=== PATIENT | male | born 1935 | race Hispanic/Latino ===

== ENCOUNTER 2017-08-15 14:38 | Inpatient (IN) | payer MEDICARE, BC, MEDICAID ==
[2017-08-15] MEDS ORDERED: ISOVUE-370 76%-LOCM 1 ML ONE (15:00)
[2017-08-15] MEDS ORDERED: Lorazepam 2 MG/ML VIAL ONE ×2 (15:21→16:15)
[2017-08-15] MEDS ORDERED: Succinylcholine Chloride 20 MG/ML 10 ml SYRINGE FS ONE (15:39)
[2017-08-15] MEDS ORDERED: levETIRAcetam In NaCl (Iso-Os) 1,000 MG in Premix Bag 1 BAG IVPB SCH ×2 (15:45)
[2017-08-15] MEDS ORDERED: Propofol 1,000 MG/100 ML VIAL IV ONE ×2 (15:52→17:14)
[2017-08-15] MEDS ORDERED: Propofol 1,000 MG/100 ML VIAL IV PRN ×2 (15:53→18:02)
[2017-08-15 16:06] LABS: #Eosinphils 0.4 thou/uL (0.0-0.7); #Lymphocytes 1.5 thou/uL (1.20-3.40); #Monocytes 0.7 thou/uL (0.11-0.59); #Neutrophils 9.1 thou/uL (1.40-6.50); %Basophils 0.2 % (0.0-1.0); %Eosinophils 3.6 % (0.0-10.0); %Lymphocytes 12.6 % (21.0-51.0); %Monocytes 6.3 % (0.0-10.0); %Neutrophils 77.3 % (42.0-75.0); Hemoglobin 14.6 g/dL (14.0-18.0); Mean Corpuscular HGB CONC 34.4 g/dL (32.0-36.0); Mean Corpuscular Hemoglobin 31.7 pg (27.0-31.0); Mean Corpuscular Volume 92.2 fl (80.0-94.0); Mean Platelet Volume 6.9 fL (7.4-10.4); Platelet Count 247 thou/uL (130-400); RBC Distribution Width 12.1 % (11.5-14.5); White Blood Cell (WBC) Count 11.7 thou/uL (4.8-10.8)
[2017-08-15 16:29] LABS: ALT (SGPT) 20 U/L (8-55); AST (SGOT) 21 U/L (5-34); Albumin 3.9 g/dL (3.4-4.8); Alkaline Phosphatase 164 U/L (40-150); Anion Gap 16 mmol/L (10-20); BUN (Urea Nitrogen) 19 mg/dL (8.4-25.7); Bilirubin, Total 0.6 mg/dL (0.2-1.2); Calc. Creatinine Clearance 0 mL/min (70-130); Calcium 8.9 mg/dL (7.8-10.44); Carbon Dioxide 21 mmol/L (23-31); Chloride 108 mmol/L (98-107); Estimated GFR-MDRD 58; Globulin 3.1 g/dL (2.4-3.5); Glucose 107 mg/dL (83-110); Potassium 4.5 mmol/L (3.5-5.1); Sodium 140 mmol/L (136-145)
[2017-08-15 16:33] LABS: CKMB 0.9 ng/mL (0-6.6); Troponin I 0.017 ng/mL (< 0.028)
[2017-08-15 16:40] LABS: Bilirubin Negative (Negative); Blood, Urine Negative (Negative); Clarity CLEAR (Clear); Glucose, Urine (Dipstick) Negative (Negative); Leukocyte Trace (Negative); Nitrite Negative (Negative); Protein, Urine (Dipstick) Trace mg/dL (Neg-Trace); Specific Gravity, Urine 1.026 (1.002-1.036); Urobilinogen 0.2 mg/dL (0.2-1.0)
[2017-08-15 16:42] LABS: Bacteria/HPF None Seen HPF (None Seen); Squamous Epithelial 0-3 HPF (0-3); WBC/HPF 0-3 HPF (0-3)
[2017-08-15 16:45] LABS: Pathc Cast-AUWi Flag 5.37 (0-2.49)
[2017-08-15 16:50] LABS: Amphetamine Not Detected (NotDetected); Barbiturates Screen Not Detected (NotDetected); Benzodiazepine Screen Detected (NotDetected); Cocaine Metabolite Screen Not Detected (NotDetected); Medtox Control Line Valid? VALID (VALID); Medtox Reader # READER 4; Methadone Not Detected (NotDetected); Methamphetamine Not Detected (NotDetected); Opiate Screen Not Detected (NotDetected); Oxycodone Screen Not Detected (NotDetected); Phencyclidine (PCP) Not Detected (NotDetected); THC/Cannabinoid Screen Not Detected (NotDetected); Tricyclic Screen Not Detected (NotDetected)
[2017-08-15 16:50] LABS: Actual Bicarbonate (HCO3a) 22.4 mEq/L (22-26); Base Excess (BEa) -2.5 mEq/L (0 (+/-) 2.5); CO2 Tension 39.2 mmHg (35.0-45.0); O2 Tension (PaO2) 125.3 mmHg (80.0-100.0); pH, Arterial 7.37 (7.35-7.45)
[2017-08-15 16:51] LABS: Hematocrit-ABG 39.5 % (42.0-52.0); Hemoglobin (Hb) 13.6 g/dL (14.0-18.0)
[2017-08-15 16:52] LABS: Analyzer IN Cardio ER; Calcium, Ionized 1.2 mmol/L (1.12-1.30); Puncture Site RBRACH
[2017-08-15 16:56] LABS: Hyaline Casts/LPF 7-10 HYALINE CAST LPF (0-3 Hyaline); Other Casts/LPF 0-3 COARSE GRAN LPF (0-3 Hyaline); Renal Epithelial 0-3 HPF (0-3); Transitional Epithelial 0-3 HPF (0-3)
--- NOTE | 2017-08-15 17:02 | RAD ---
PORTABLE AP CHEST RADIOGRAPH: Date: 08-15-17 History: Altered mental status. [facility] to reported seizure. History of two seizures today. Comparison: 11-21-16 FINDINGS: The patient is rotated. Endotracheal tube is noted in place with the tip overlying the T4-5 level and above the level of the bryce. A nasogastric tube is noted in place which overlies the epigastric re gion. Tip overlies the medial aspect of the right upper quadrant although the exact location is diffi cult to definitely determine based on this exam, some of which could be related to patient positionin g. Post-surgical changes related to CABG are noted. The cardiac silhouette is magnified by projection . Thoracic aorta is ectatic. Lungs are clear. No other interval change. IMPRESSION: 1. Endotracheal tube noted in place which is above the level of the bryce. 2. Nasogastric tube noted in place with tip overlying the medial right upper quadrant. The exact loca tion is difficult to determine but this is likely related to positioning. 3. No acute cardiopulmonary process. POS: [facility]
--- NOTE | 2017-08-15 17:28 | CT ---
BRAIN CT WITHOUT IV CONTRAST: History: 81-year-old male with history of seizure. Comparison: 11-21-16 FINDINGS: Stable old encephalomalacia involving the left middle cerebral artery distribution, particularly the left temporal and parietal lobes and posterior frontal lobe, stable from prior study. There is associ ated left sided brain volume loss. No focal mass or midline shift. Ethmoid and maxillary sinus mucosa l disease. The mastoids are clear. IMPRESSION: Stable marked left sided encephalomalacic changes with some associated left sided brain volume loss. No mass, bleed, or other acute process. Sinus mucosal disease. POS: [facility]
[2017-08-15] MEDS ORDERED: Sedation Protocol FS ONE (17:52)
[2017-08-15] MEDS ORDERED: CCU Electrolyte Replacement 1 EACH FS ONE (17:52)
[2017-08-15] MEDS ORDERED: Morphine 2 MG/ML SYRINGE SLOW IVP PRN (18:02)
[2017-08-15] MEDS ORDERED: Fentanyl BOLUS 250 ML IVPB PRN ×3 (18:02→21:42)
[2017-08-15] MEDS ORDERED: DISCONTINUE PREVIOUS NARCOTIC PAIN MEDICATIONS AND BENZODIAZEPINES FS SCH ×2 (18:02→19:05)
[2017-08-15] MEDS ORDERED: Lorazepam 2 MG/ML VIAL SLOW IVP PRN ×2 (18:02→19:05)
[2017-08-15] MEDS ORDERED: fentaNYL Citrate/PF 2,000 MCG in Sodium Chloride 0.9% 60 ML IV SCH ×2 (18:02→19:15)
[2017-08-15] MEDS ORDERED: Potassium Chloride 40 MEQ in Sodium Chloride 0.9% 250 ML 250 ML IVPB PRN ×2 (18:03→19:05)
[2017-08-15] MEDS ORDERED: Potassium Chloride 40 MEQ in Premix Bag 1 BAG IVPB PRN ×2 (18:03→19:05)
[2017-08-15] MEDS ORDERED: Potassium Phosphate 12 MMOL in Sodium Chloride 0.9% 250 ML 250 ML IV PRN ×2 (18:03→19:05)
[2017-08-15] MEDS ORDERED: CCU ELECTROLYTE REPLACEMENT PROTOCOL FS PRN (18:03)
[2017-08-15] MEDS ORDERED: Potassium Phosphate 9 MMOL in Sodium Chloride 0.9% 100 ML IVPB PRN ×2 (18:03→19:05)
[2017-08-15] MEDS ORDERED: Potassium Phosphate 15 MMOL in Sodium Chloride 0.9% 250 ML 250 ML IV PRN ×2 (18:03→19:05)
[2017-08-15] MEDS ORDERED: Magnesium 2 GM/NS 0.9% 100 ML 2 GM in Premix Bag 1 BAG IVPB PRN ×2 (18:03→19:05)
[2017-08-15] MEDS ORDERED: Magnesium Oxide 400 MG TAB PO PRN ×4 (18:03→19:05)
[2017-08-15] MEDS ORDERED: Potassium Chloride 20 MEQ TAB PO PRN ×2 (18:03→19:05)
[2017-08-15] MEDS: Sodium Chloride 0.9% 1,000 ML IV SCH (18:55)
[2017-08-15] MEDS ORDERED: Fentanyl CADD 250 ML IVPB SCH (19:05)
[2017-08-15] MEDS ORDERED: Morphine 4 MG/ML VIAL SLOW IVP PRN (19:06)
[2017-08-15] MEDS ORDERED: cloNIDine 0.1 MG TAB PO PRN (19:19)
[2017-08-15] MEDS ORDERED: Bisacodyl 5 MG TAB PO PRN (19:19)
[2017-08-15] MEDS ORDERED: Benzonatate 100 MG CAP PO PRN (19:19)
[2017-08-15] MEDS ORDERED: Loratadine 10 MG TAB PO PRN (19:19)
[2017-08-15] MEDS ORDERED: Ondansetron HCl/PF 4 MG/2 ML Vial IVP PRN (19:19)
[2017-08-15] MEDS ORDERED: Diabetic Tussin 200 MG/10 ML UDCUP PO PRN (19:19)
[2017-08-15] MEDS ORDERED: hydrALAZINE 20 MG/ML VIAL SLOW IVP PRN (19:19)
[2017-08-15] MEDS ORDERED: Senokot 8.6 MG TAB PO PRN (19:19)
--- NOTE | 2017-08-15 19:31 | CT ---
CHEST CT SCAN WITH IV CONTRAST: 08/15/17 HISTORY: 81-year-old male with history of seizures with recent cough with concern for aspiration. Endotracheal tube is in place with the tip above the level of the bryce. NG tube is noted extending into the stomach. There are bilateral thyroid nodules up to approximately 1.5 cm in size. Postop mid line sternotomy. Extensive three vessel coronary artery calcification. No mediastinal mass. No adenop athy. There are scattered bilateral areas of minimal pleural thickening and pleural based parenchymal sanchez es including both right and left posterior inferior lung bases as well as some pleural based changes in the right upper lobe laterally. These are nonspecific and although have more of the appearance of chronic change, the possibility of some mild atypical pneumonitis certainly cannot be excluded. No pe ricardial effusion or acute pleural effusion. Approximately 4 cm diameter circumscribed low density f ocus within the spleen probably representing a slightly septated splenic cyst. There is no evidence f or confluent pneumonia. IMPRESSION: NG tube and endotracheal tubes in position. No mediastinal mass or adenopathy. Scattered bilateral mi nimal pleural thickening and mostly pleural based parenchymal changes including the right upper lobe. These have more the appearance of chronic change although certainly could represent some minimal aty pical pneumonia or pneumonitis. A short term followup examination with CT in one to two weeks might b e of benefit to evaluate either stability or resolution. Bilateral thyroid nodules. POS: [facility]
--- NOTE | 2017-08-15 20:28 | HP ---
DATE OF ADMISSION: 08/15/2017 PRIMARY CARE PHYSICIAN: Dr. Neftali Wagner. CHIEF COMPLAINT: Seizure. HISTORY OF PRESENT ILLNESS: Mr. Hennessy is a 81-year-old male with past medical history of CV A with residual right-sided weakness as well as history of coronary artery disease, NH, and seizures who [facility] today. History is mainly obtained by the patient's w norma who is present at the bedside who unfortunately does not know much as to what transpired except w hat was told to her by the [facility] staff. According to Mr. Hennessy, he is a [facility] resident because of his significant neurological deficit s. Today, he received a call and was told that he is having seizures and was sent to the emergency r oom. This approximately started around 2:20 p.m. today. He was noticed to have 2 seizures first las ting for 25 minutes. The second, lasting for 10 minutes per the [facility] staff. The seizure angelica lity was described as clenching. The patient currently is on Keppra 250 b.i.d. and follows up with [facility] with his history of seizures and CVA that happened in 01/2016. Upon presentation, his blood pressure was high at 192/110 and his pulse was 120. He was breathing 24 times a minute, and temperature was 99. He promptly got intubated in the emergency room when it was found out that he is still actively having seizures and his possible in status epilepticus and was u nable to protect his airway. As per the emergency room physician, he received Ativan as well as Vers ed by the EMS and was given bolus of 1000 mg of Keppra in the emergency room again. He is currently intubated and has been evaluated by Pulmonary Critical Care Medicine as well. He is being admitted t o CCU. There is also question of a purulent suctioning while intubating. A CT scan of the chest has been ordered which shows possible pneumonitis versus chronic changes, but formal report is pending a t this time. PAST MEDICAL HISTORY: Coronary artery disease, hypertension, dyslipidemia, CVA with residual right-s ided paralysis, history of seizures. PAST SURGICAL HISTORY: Appendectomy, hernia repair, bypass grafting. SOCIAL HISTORY: [facility] is currently a [facility] of a [facility]. No history of drug, tobacco or alcoho l abuse. FAMILY HISTORY: No significant family history of premature coronary artery disease or stroke. CURRENT MEDICATIONS: Listed as per the emergency room record, lisinopril 5 mg daily, metoprolol tart rate 12.5 mg b.i.d., atorvastatin 80 mg daily, omeprazole 20 mg daily, mirtazapine 15 mg daily, Senok ot daily, simethicone daily, multivitamin daily, vitamin C daily, aspirin 325 mg daily, Tylenol as ne eded, fexofenadine as needed, guaifenesin as needed, Keppra 250 p.o. b.i.d. REVIEW OF SYSTEMS: Unobtainable as the patient is intubated and sedated at this time. LABORATORY DATA: CBC shows WBCs at 11.7, otherwise unremarkable. He has 77% neutrophils. Serum william mistries show chloride 108, bicarbonate of 21. Troponin and CK-MB within normal limit. BNP 126. Ur inalysis is unremarkable. Toxicology positive for benzodiazepines. His chest x-ray by my review reyes s not have any specific evidence to suggest infiltrates. CT scan of the brain done in the ER showed stable left-sided encephalomalacic changes and left-sided brain volume loss. No masses bleed or acut e process. PHYSICAL EXAMINATION: VITAL SIGNS: Most recent vital sings include blood pressure 125/77, pulse of 111, respirations 14, t emperature 97.5, saturating 100% on ventilator. GENERAL: He is still having some jerky movements involving most of his body including his head and b oth lower extremities. He does appear to be otherwise sedated on propofol. No acute distress. Jori florentino is at bedside. HEENT: Endotracheal tube in place. Mucous membrane is moist and pink. Head is normocephalic, atrau matic. Pupils are equal, reactive to light. No nystagmus noticed at this time. NECK: Free of any JVD or bruit. CHEST: Clear to auscultation without any wheezing, rales or rhonchi. Patient is trying to breathe o miky the vent. Rate and rhythm is regular without any murmur, rubs or gallops. ABDOMEN: Soft, nondistended. No guarding, rebound or rigidity. EXTREMITIES: Free of any cyanosis, clubbing, or edema. NEUROLOGIC: Limited. He does have clonus in his right lower leg and rest of the exam could not be p erformed because of the sedation. PSYCHIATRIC: Cannot be performed because of the sedation. SKIN: Free of any rashes or bruises. EXTREMITIES: Free of any cyanosis, clubbing, or edema. IMPRESSION AND PLAN: 1. Status epilepticus versus breakthrough seizures. The patient's Keppra dose most likely needs to be adjusted higher. We will continue with 1000 mg p.o. b.i.d. over the care plan. Consult Neurology for further recommendations. He will be admitted to the Critical Care Unit and we will consult Pulm onary medicine for ventilator management. Dr. Hathaway has actually already evaluated him. Wait for the final results of the CT scan. He may or may not need any antibiotic for possible aspiration. Co ntinue symptomatic and supportive care. Start him on gentle intravenous fluid hydration as well as C CU electrolyte protocol, sedation protocol and ventilatory protocol, nebulizers as well. EEG has bee n ordered by Dr. Hathaway. 2. History of coronary artery disease. Restart his aspirin and metoprolol. Restart his Zocor via t he tube. 3. History of cerebrovascular accident as above, we will resume the aspirin for now. 4. Code status. Reportedly, the patient was a DNR with the changed his Code status, so he can be intubated in the emergency room. I re-discussed it with them and at this time he is a FULL CODE f or now. 4. Deep venous thrombosis and gastrointestinal prophylaxis. DISPOSITION: Mr. Hennessy is being admitted to the Critical Care Unit after suffering status epilepticu s and possible aspiration pneumonitis. Further management will depend upon his clinical course. Est imated length of stay is at least 2-3 midnight at this time.
[2017-08-15] MEDS ORDERED: Famotidine/PF 20 mg/2ml Vial SLOW IVP SCH (21:00)
[2017-08-15] MEDS: levETIRAcetam 500 mg/5 ml Oral Solution PO SCH (21:41)
--- NOTE | 2017-08-15 22:57 | CON ---
DATE OF SERVICE: 08/15/2017 REASON FOR CONSULTATION: Respiratory failure related to seizure episode. HISTORY OF PRESENT ILLNESS: The patient is a 81-year-old male who lives at [facility]. He had a witnessed seizure and he was transported here. He was intubated for airway protection. In speaking with the , I found out that he has out of hospital DNR. I do not think the ER was aware that before the patient was intubated. The states that the way it was presented to her, he was told the patient needed to be intubated for airway protection or would not do well. The patient was paralyzed and sedated for the intubation and has not had demonstrated seizure activity since that time. This patient has a history of massive stroke in 2016 with right sided hemiparesis. He is aphasic. He is able to swallow. He cannot ambulate and is bedridden. PAST MEDICAL HISTORY: 1. Stroke. 2. Coronary artery disease. 3. Hypertension. 4. Poor performance status. PAST SURGICAL HISTORY: Coronary artery bypass grafting surgery in 1997. SOCIAL HISTORY: Quit smoking many, many years ago. Does not consume alcohol, does not use illicit drugs. Lives at [facility]. ALLERGIES: None. LONG-TERM MEDICATIONS: Acetaminophen as needed, aspirin 325 mg daily, atorvastatin 80 mg daily, fexofenadine 180 mg daily, guaifenesin 200 mg every 4 hours as needed, Keppra 250 mg twice daily, lisinopril 2.5 mg daily, metoprolol 25 mg 1/2 tablet 2 times daily, omeprazole 20 mg daily, Remeron 15 mg nightly, senna 1 tablet 2 times daily, simethicone 80 mg every 6 hours as needed, multivitamin 1 daily, vitamin C 500 mg 2 times daily. CODE STATUS: The patient previously DNR. The DNR is to remain in effect according to the patient's , aside from the current endotracheal intubation. REVIEW OF SYSTEMS: Cannot be obtained as the patient is intubated on mechanical ventilation. FAMILY MEDICAL HISTORY: Unremarkable. PHYSICAL EXAMINATION: VITAL SIGNS: Temperature is 97.9, pulse 100, blood pressure 138/89, pulse 113. End-tidal CO2 is 30. GENERAL: This patient is currently intubated and paralyzed. HEENT: Pupils are 2 mm, both reactive, sclerae are anicteric. Oropharynx, endotracheal tube and orogastric tube in place. NECK: No adenopathy, no JVD, no bruits. LUNGS: Clear to auscultation without wheezing, rhonchi or crackles. CARDIOVASCULAR: S1, S2 regular, without murmur, rub or gallop. ABDOMEN: Soft, nontender, nondistended. EXTREMITIES: No clubbing, cyanosis, or edema. No obvious decubitus ulcers. LABORATORY AND X-RAY FINDINGS: White blood cell count 11.7, hematocrit 42.4, platelet count 247, pH 7.37, pCO2 of 39, pO2 of 125 on SIMV rate 14, tidal volume 450, PEEP 5, pressure support 10, FIO2 40%. Sodium 140, potassium 4.5, chloride 108, CO2 of 21, BUN 19, creatinine 1.2, glucose 107. Troponin 0.017. BNP 126.5. Urinalysis showed no white cells. Urine drug screen was positive for benzodiazepines. Chest x-ray shows no mass, effusion or infiltrate. The CT of the chest shows some chronic interstitial changes on the right side. Brain CT showed no acute infarction. ASSESSMENT: 1. Status epilepticus -- seizures seem to now be resolved. 2. Acute respiratory failure related to airway risk from seizure. 3. Previous stroke with residual right-sided hemiparesis and aphasia. 4. Previous coronary artery disease. RECOMMENDATIONS: The patient will be intubated at least overnight. Neurology will probably need to be involved in this case and I suspect he will need EEG tomorrow morning. Blood pressure medication will have to be watched closely since he is on propofol. I would probably hold off on starting anything until tomorrow morning. Patient has been loaded with Keppra in the emergency room. I can restart oral form tomorrow if okay with Neurology. 60 minutes critical care time [facility]
[2017-08-15] MEDS: Lorazepam 2 MG/ML VIAL SLOW IVP PRN (23:56)
--- NOTE | 2017-08-16 00:14 | CON ---
DATE OF CONSULTATION: 08/15/2017 REFERRING PHYSICIAN: Dr. Louise Jack. REASON FOR CONSULTATION: Status epilepticus. HISTORY OF PRESENT ILLNESS: Mr. Hennessy is a 81-year-old male who has been concerned for javi luation of status epilepticus. History is obtained from patient's medical chart as well as RN who is taking care of the patient. Apparently, the patient has history of left middle cerebral artery dist ribution ischemic infarct. He also has history of seizure disorder. He is currently on Keppra 250 m g b.i.d. [facility] he was noted to have sudden onset of seizure x2, first episode lasted approximately 25 minutes and the second episode lasted for approximately 10 minutes. He was b rought to the [facility]. On arrival here, the ER physician noted the patient was hav ing continuous jerking of the right upper extremity as well as nystagmus. He was given multiple roun ds of Ativan and Versed in order to protect his airways. He had to be intubated. He was also given loading dose of Keppra 1000 mg IV for one dose. I being asked to further evaluate and manage his cliff oing seizures. According to nurse he is continuing to have jerking of his right upper and right lowe r extremity that is occurring every few seconds. PAST MEDICAL HISTORY: Could not be obtained. PAST SURGICAL HISTORY: Could not be obtained. SOCIAL HISTORY: Could not be obtained. FAMILY HISTORY: Could not be obtained. CURRENT MEDICATIONS: Please review MAR. ALLERGIES: No known drug allergies. REVIEW OF SYSTEMS: Unable to perform. PHYSICAL EXAMINATION: VITAL SIGNS: Blood pressure of 115/72, pulse of 103, respirations of 14 on mechanical ventilation. GENERAL: Intubated, sedated male in no apparent distress. RESPIRATORY: Clear to auscultation bilaterally. CARDIOVASCULAR: Regular rate and rhythm. NEUROLOGIC: Mental status: The patient is intubated and sedated with propofol. Cranial nerves: Pu pils are 3 mm and reactive. Face appears symmetric. He does breathe over the ventilator machine. M otor exam showed increased tone of both upper and lower extremities. He is more rigid on the right s rafa than the left side. He has clonic movement in the right upper and right lower extremity every 15 -20 seconds. Deep tendon reflexes, brisk reflexes in both upper and lower extremities. Babinski: P lantar responses extensors bilaterally. LABORATORY DATA: Reviewed, which included CBC, CMP, BNP, urinalysis and urine drug screen, which is significant for WBC of 11.7. BNP of 126.5 and urine drug screen was positive for benzodiazepine, oth erwise negative. IMAGING STUDIES: CT head without contrast was reviewed, which showed no acute intracranial abnormali ty. IMPRESSION: 1. Status epilepticus. 2. Prior left middle cerebral artery distribution ischemic infarct. Mr. Hennessy is a 81-year-old male with history of left middle cerebral artery stroke and seizu re disorder who presented in status epilepticus. At this time, on my examination, he was still noted to have focal motor seizure involving the right upper and right lower extremity, which is likely saniya ginating from his prior stroke. I will load him with fosphenytoin 1 gram IV now dose. I will increa se his Keppra to 500 mg twice a day. I will continue to monitor his progress and prior further recom mendations as necessary.
[2017-08-16] MEDS: Propofol 1,000 MG/100 ML VIAL IV PRN ×2 (01:51→14:27)
[2017-08-16] MEDS: Sodium Chloride 0.9% 1,000 ML IV SCH ×3 (04:00→23:22)
[2017-08-16 05:23] LABS: #Eosinphils 0.2 thou/uL (0.0-0.7); #Lymphocytes 0.9 thou/uL (1.20-3.40); #Neutrophils 9.4 thou/uL (1.40-6.50); %Basophils 0.2 % (0.0-1.0); %Eosinophils 1.7 % (0.0-10.0); %Lymphocytes 7.8 % (21.0-51.0); %Neutrophils 81.4 % (42.0-75.0); Hemoglobin 13.4 g/dL (14.0-18.0); Mean Corpuscular HGB CONC 33.6 g/dL (32.0-36.0); Mean Corpuscular Hemoglobin 31.1 pg (27.0-31.0); Mean Corpuscular Volume 92.4 fl (80.0-94.0); Mean Platelet Volume 7.3 fL (7.4-10.4); Platelet Count 220 thou/uL (130-400); RBC Distribution Width 12.2 % (11.5-14.5); Red Blood Cell (RBC) Count 4.31 mill/uL (4.70-6.10); White Blood Cell (WBC) Count 11.5 thou/uL (4.8-10.8)
[2017-08-16 05:33] LABS: Anion Gap 14 mmol/L (10-20); BUN (Urea Nitrogen) 19 mg/dL (8.4-25.7); Calc. Creatinine Clearance 49 mL/min (70-130); Calcium 8.8 mg/dL (7.8-10.44); Carbon Dioxide 24 mmol/L (23-31); Chloride 106 mmol/L (98-107); Estimated GFR-MDRD 52; Glucose 130 mg/dL (83-110); Potassium 3.7 mmol/L (3.5-5.1); Sodium 140 mmol/L (136-145)
[2017-08-16 07:02] LABS: Actual Bicarbonate (HCO3a) 21.9 mEq/L (22-26); Base Excess (BEa) -1.3 mEq/L (0 (+/-) 2.5); CO2 Tension 32.1 mmHg (35.0-45.0); Hematocrit-ABG 34.6 % (42.0-52.0); Hemoglobin (Hb) 11.4 g/dL (14.0-18.0); O2 Tension (PaO2) 102.1 mmHg (80.0-100.0); pH, Arterial 7.45 (7.35-7.45)
[2017-08-16 07:03] LABS: ALV-art Gradient 70.175 (0-20); Calcium, Ionized 1.1 mmol/L (1.12-1.30); Puncture Site RRA
--- NOTE | 2017-08-16 08:53 | PRG ---
DATE OF SERVICE: 08/16/2017 Thirty-five minutes of critical care time. The patient is poorly responsive this morning. He will not follow commands. I can get him to withdr aw by stimulating pain in all 4 extremities. He was just taken off of propofol drip this morning. N eurology has seen the patient and thought that he was still having seizures as of late yesterday as i ndicated by rhythmic movements of the right upper extremity. PHYSICAL EXAMINATION: VITAL SIGNS: Temperature is 98.7, pulse 86, blood pressure 122/51. He is requiring no vasopressor t herapy, 24-hour intake 1289, output 660. HEENT: Pupils weakly reactive. Sclerae are anicteric. Oropharynx clear. NECK: No adenopathy or JVD. LUNGS: Clear without wheeze or rhonchi. CARDIOVASCULAR: S1, S2 regular. ABDOMEN: Soft, nontender. EXTREMITIES: No clubbing, cyanosis, or edema. LABORATORY DATA: White blood cell count 11.5, hematocrit 39.9, platelet count 220, pH 7.45, pCO2 of 32, pO2 102 on SIMV rate 14, tidal volume 500, PEEP 5, pressure support 10, FiO2 30%. Sodium 140, po tassium 3.7, chloride 106, CO2 24, BUN 19, creatinine 1.3, glucose 130. ASSESSMENT: 1. Status epilepticus. 2. Acute respiratory failure requiring mechanical ventilation. 3. History of previous stroke. PLAN: At the current time, I do not think his mental status is good enough to proceed with extubatio n. The patient is undergoing an EEG this morning. We will go ahead and start tube feeds. I will ad just his mechanical ventilation settings. We will await further Neurology input.
[2017-08-16] MEDS: Metoprolol Tartrate 25 MG TAB PER TUBE SCH (09:00)
[2017-08-16] MEDS ORDERED: Famotidine 20 MG TAB PER TUBE SCH (09:00)
[2017-08-16] MEDS ORDERED: levETIRAcetam 500 mg/5 ml Oral Solution PO SCH ×3 (09:38→13:00)
--- NOTE | 2017-08-16 10:13 | RAD ---
AP VIEW CHEST: INDICATIONS: Intubation. COMPARISON: Prior exam dated 08/15/2017. FINDINGS: ET tube tip and gastric catheter are unchanged. There are stable postsurgical changes of prior coron angie artery bypass. Small subsegmental atelectasis in the right mid lung is similar. No focal consol idation or pneumothorax is evident. The patient is rotated. IMPRESSION: 1. Stable tubes and lines. 2. Stable right mid lung atelectasis. POS: [facility]
[2017-08-16] MEDS: Aspirin 325 MG TAB PER TUBE SCH (11:21)
[2017-08-16] MEDS: Enoxaparin Sodium 40 MG/0.4 ML SYRINGE SC SCH (11:21)
[2017-08-16] MEDS: Famotidine 20 MG TAB PER TUBE SCH (11:21)
[2017-08-16] MEDS: Lorazepam 2 MG/ML VIAL SLOW IVP PRN (11:59)
[2017-08-16] MEDS: levETIRAcetam 500 mg/5 ml Oral Solution PO SCH ×2 (14:27→20:44)
--- NOTE | 2017-08-16 15:25 | PDOC.PN ---
- Subjective Encounter Start Date: 08/16/17 Encounter Start Time: 15:23 Subjective: remains intubated. -: seizures seemed to have stopped - Objective MAR Reviewed: Yes Vital Signs & Weight: Vital Signs (12 hours) Temp Pulse Resp BP 08/16/17 14:33 94 96/47 L 08/16/17 12:59 79 105/52 L 08/16/17 12:00 100.1 F H 08/16/17 10:17 81 101/49 L 08/16/17 08:00 99.4 F 08/16/17 07:48 77 81/36 L 08/16/17 06:00 21 H 08/16/17 05:00 98.7 F 08/16/17 04:26 81 92/38 L 08/16/17 04:00 16 Most Recent Monitor Data Heart Rate from ECG 80 NIBP 96/47 NIBP BP-Mean 58 Respiration from ECG 22 SpO2 100 I&O: 08/15/17 08/16/17 08/17/17 06:59 06:59 06:59 Intake Total 1289 Output Total 600 178 Balance 689 -178 Result Diagrams: 08/16/17 04:29 08/16/17 04:29 Additional Labs: Laboratory Tests 08/15/17 08/16/17 15:58 04:29 Creatinine 1.20 1.32 H Phys Exam - Physical Examination Constitutional: NAD intubated HEENT: PERRLA, moist MMs, sclera anicteric, oral pharynx no lesions Neck: no JVD Respiratory: no wheezing, no rales, no rhonchi caorse and reduced at bases Cardiovascular: RRR, no significant murmur Gastrointestinal: soft, no distention, positive bowel sounds Musculoskeletal: no edema sedated.withdraws to pain Skin: no rash Dx/Plan (1) Status epilepticus Code(s): G40.901 - EPILEPSY, UNSP, NOT INTRACTABLE, WITH STATUS EPILEPTICUS Status: Acute Comment: Resolved. EEG pending. (2) Aspiration pneumonia Code(s): J69.0 - PNEUMONITIS DUE TO INHALATION OF FOOD AND VOMIT Status: Acute (3) HIRO (acute kidney injury) Code(s): N17.9 - ACUTE KIDNEY FAILURE, UNSPECIFIED Status: Acute (4) h/o CVA with residual effects Status: Acute (5) CAD (coronary artery disease) Code(s): I25.10 - ATHSCL HEART DISEASE OF [place] CORONARY ARTERY W/O ANG PCTRS Status: Acute (6) Hyperlipidemia Code(s): E78.5 - HYPERLIPIDEMIA, UNSPECIFIED Status: Chronic Comment: Statin agent once PEG/Dobhoff or oral route available (7) Hypertension Code(s): I10 - ESSENTIAL (PRIMARY) HYPERTENSION Status: Chronic Qualifiers: - Plan DVT proph w/SCDs Increase keppra per neurology.loaded w Fosphynetoin yesterday -: cont supportive care. vent per PPCM. -: empiric ABx for possible aspiration PNA -: am labs * . Review of Systems - Review of Systems Other: unobtainable due to sedation,intubation - Medications/Allergies Allergies/Adverse Reactions: Allergies Allergy/AdvReac Type Severity Reaction Status Date / Time No Known Allergies Allergy Verified 08/15/17 20:52 Medications: Current Medications Acetaminophen (Tylenol) 650 mg PO Q6H PRN PRN Reason: Fever > 101 Albuterol/Ipratropium (Duoneb) 3 ml NEB [id number] [facility] Last Admin: 08/16/17 12:58 Dose: 3 ml Aspirin (Aspirin) 325 mg PER TUBE DAILY [facility] Last Admin: 08/16/17 11:21 Dose: 325 mg Benzonatate (Tessalon) 100 mg PO Q4H PRN PRN Reason: Cough Bisacodyl (Dulcolax) 10 mg PO DAILYPRN PRN PRN Reason: Constipation Clonidine (Catapres) 0.1 mg PO Q4H PRN PRN Reason: Systolic BP > 150 Enoxaparin Sodium (Lovenox) 40 mg SC 0900 [facility] Last Admin: 08/16/17 11:21 Dose: 40 mg Famotidine (Pepcid) 20 mg PER TUBE DAILY [facility] Last Admin: 08/16/17 11:21 Dose: 20 mg Guaifenesin (Robitussin Sf) 200 mg PO Q4H PRN PRN Reason: Cough Hydralazine HCl (Apresoline) 10 mg SLOW IVP Q4H PRN PRN Reason: Systolic BP > 160 Sodium Chloride (Normal Saline 0.9%) 1,000 mls @ 100 mls/hr IV .Q10H [facility] Last Admin: 08/16/17 14:26 Dose: 1,000 mls Potassium Chloride 40 meq/ (Sodium Chloride) 270 mls @ 135 mls/hr IVPB ASDIR PRN PRN Reason: FOR SERUM K+ 2.5 - 3.5 Potassium Chloride 40 meq/ (Device) 100 mls @ 50 mls/hr IVPB ASDIR PRN PRN Reason: FOR SERUM K+ 2.5 - 3.5 Magnesium Sulfate 1 gm/ Sodium (Chloride) 102 mls @ 102 mls/hr IV PRN PRN PRN Reason: MAG LEVEL 1.4 - 2.0 Magnesium Sulfate 2 gm/ Device 100 mls @ 100 mls/hr IVPB ASDIR PRN PRN Reason: MAGNESIUM < 1.4 Potassium Phosphate 9 mmol/ (Sodium Chloride) 103 mls @ 25.75 mls/hr IVPB ASDIR PRN PRN Reason: Phosphate 1.0-1.8 Potassium Phosphate 12 mmol/ (Sodium Chloride) 254 mls @ 63.5 mls/hr IV ASDIR PRN PRN Reason: Serum phosphate 0.5-0.9 Potassium Phosphate 15 mmol/ (Sodium Chloride) 255 mls @ 63.75 mls/hr IV ASDIR PRN PRN Reason: Serum Phos < 0.5 Fentanyl Citrate 2,000 mcg/ (Sodium Chloride) 100 mls @ 0 mls/hr IV INF HAWA PRN Reason: As Directed Fentanyl Citrate (Fentanyl Bolus) 250 mls @ 0 mls/hr IVPB PRN PRN; As Directed PRN Reason: Breakthrough pain Lactulose (Lactulose) 10 gm PO DAILYPRN PRN PRN Reason: Constipation Levetiracetam (Keppra Oral Solution) 500 mg PO BID HAWA Loratadine (Claritin) 10 mg PO DAILYPRN PRN PRN Reason: Sinus Symptoms Lorazepam (Ativan) 2 mg SLOW IVP Q2H PRN PRN Reason: Anxiety to achieve Bey 2-3 Stop: 09/14/17 19:05 Lorazepam (Ativan) 2 mg SLOW IVP Q4H PRN PRN Reason: Seizures Last Admin: 08/16/17 11:59 Dose: 2 mg Magnesium Oxide (Magnesium Oxide) 400 mg PO BIDPRN PRN PRN Reason: FOR SERUM MAG 1.4 - 2.0 Magnesium Oxide (Magnesium Oxide) 800 mg PO PRN PRN PRN Reason: FOR SERUM MAG < 1.4 Metoprolol Tartrate (Lopressor) 12.5 mg PER TUBE DAILY [facility] Last Admin: 08/16/17 09:00 Dose: Not Given Miscellaneous Medication (Phos-Nak) 1 pkt PO TIDPRN PRN PRN Reason: FOR PHOS LEVEL 1.0 - 1.8 Miscellaneous Medication (Phos-Nak) 2 pkt PO TIDPRN PRN PRN Reason: FOR PHOS LEVEL 0.5 - 1.0 Morphine Sulfate (Morphine) 2 mg SLOW IVP Q2H PRN PRN Reason: .BREAKTHROUGH PAIN Ccu Electrolyte (Replacement Protocol) 0 each FS PRN PRN PRN Reason: FOR ELECTROLYTE REPLACEMENT Ondansetron HCl (Zofran) 4 mg IVP Q6H PRN PRN Reason: Nausea/Vomiting Potassium Chloride (K-Dur) 40 meq PO ASDIR PRN PRN Reason: FOR SERUM K+ 2.5 - 3.5 Potassium Chloride (Klor-Con) 40 meq PER TUBE ASDIR PRN PRN Reason: FOR SERUM K+ 2.5-3.5 Propofol (Diprivan) 1,000 mg IV INF PRN; Protocol PRN Reason: TO ACHIEVE BEY SCORE 2-3 Stop: 09/14/17 19:05 Last Admin: 08/16/17 14:27 Dose: 1,000 mg Senna (Senokot) 2 tab PO HSPRN PRN PRN Reason: Constipation Sodium Chloride (Flush - Normal Saline) 10 ml IVF Q12HR [facility] Last Admin: 08/16/17 11:23 Dose: 10 ml Sodium Chloride (Flush - Normal Saline) 10 ml IVF PRN PRN PRN Reason: Saline Flush
[2017-08-16 15:59] VITALS: BMI 27.1
[2017-08-16] MEDS: Acetaminophen 325 MG TAB PO PRN (20:46)
--- NOTE | 2017-08-16 21:05 | PRG ---
DATE OF SERVICE: 08/16/2017 SUBJECTIVE: Mr. Hennessy continues to have intermittent episodes of full body jerking. He has not had any continuous tonic clonic seizure. He has not responsive to any noxious or verbal stimuli. PHYSICAL EXAMINATION: VITAL SIGNS: Blood pressure of 97/42, pulse of 78, respirations are 26, temperature of 98.3 with a T -max of 100.4 on mechanical ventilation. GENERAL: Intubated, sedated male in no apparent distress. RESPIRATORY: Clear to auscultation bilaterally. CARDIOVASCULAR: Regular rate and rhythm. BREASTS: Regular rate and rhythm. NEUROLOGICAL: Mental status: The patient is intubated and sedated, unresponsive to verbal or noxiou s stimuli. Cranial nerves: Pupils are 3 mm and reactive. He does breathe over the ventilator machi ne. There is a positive cough and gag reflex. Motor exam showed increased tone in both upper and lo wer extremities. He has episodes of full body jerking that is more of a clonic movement every minute or so. IMPRESSION: 1. Status epilepticus. 2. Prior history of left MCA stroke. ASSESSMENT AND PLAN: Mr. Hennessy is a 81-year-old male who presented with status epilepticus. He continues to have clonic jerking every 1 minute. At this time, I have increased the dose of the Keppra to 1000 mg b.i.d. I will also start him on Dilantin 100 mg 3 times a day. I will check the level for Keppra. I will check the level for Dilantin in the morning. He will be given a loading do se of Dilantin 500 mg along with Keppra 500 mg now dose. I will obtain MRI brain without contrast in the morning. Continue current medical management. Continue supportive care.
[2017-08-17 04:52] LABS: Anion Gap 13 mmol/L (10-20); BUN (Urea Nitrogen) 20 mg/dL (8.4-25.7); Calc. Creatinine Clearance 53 mL/min (70-130); Calcium 7.9 mg/dL (7.8-10.44); Carbon Dioxide 20 mmol/L (23-31); Chloride 110 mmol/L (98-107); Estimated GFR-MDRD 57; Glucose 144 mg/dL (83-110); Potassium 3.5 mmol/L (3.5-5.1); Sodium 139 mmol/L (136-145)
[2017-08-17 07:05] LABS: Base Excess (BEa) -3.1 mEq/L (0 (+/-) 2.5); CO2 Tension 29.7 mmHg (35.0-45.0); Hematocrit-ABG 32.4 % (42.0-52.0); Hemoglobin (Hb) 11.4 g/dL (14.0-18.0); O2 Tension (PaO2) 65.9 mmHg (80.0-100.0); pH, Arterial 7.45 (7.35-7.45)
[2017-08-17 07:06] LABS: ALV-art Gradient 110.875 (0-20); Calcium, Ionized 1.1 mmol/L (1.12-1.30); Puncture Site LRA
--- NOTE | 2017-08-17 07:33 | PDOC.PULCC ---
CCU Progress Note: Subj/Obj - Subjective Date: 08/17/17 Time: 07:32 Narrative: No changes. Neurology thinks he is having seizures. I'm not sure - Objective Allergies/Adverse Reactions: Allergies Allergy/AdvReac Type Severity Reaction Status Date / Time No Known Allergies Allergy Verified 08/15/17 20:52 Medications: Current Medications Acetaminophen (Tylenol) 650 mg PO Q6H PRN PRN Reason: Fever > 101 Last Admin: 08/16/17 20:46 Dose: 650 mg Albuterol/Ipratropium (Duoneb) 3 ml NEB [id number] [facility] Last Admin: 08/17/17 06:37 Dose: 3 ml Aspirin (Aspirin) 325 mg PER TUBE DAILY [facility] Last Admin: 08/16/17 11:21 Dose: 325 mg Benzonatate (Tessalon) 100 mg PO Q4H PRN PRN Reason: Cough Bisacodyl (Dulcolax) 10 mg PO DAILYPRN PRN PRN Reason: Constipation Clonidine (Catapres) 0.1 mg PO Q4H PRN PRN Reason: Systolic BP > 150 Enoxaparin Sodium (Lovenox) 40 mg SC 0900 [facility] Last Admin: 08/16/17 11:21 Dose: 40 mg Famotidine (Pepcid) 20 mg PER TUBE DAILY [facility] Last Admin: 08/16/17 11:21 Dose: 20 mg Guaifenesin (Robitussin Sf) 200 mg PO Q4H PRN PRN Reason: Cough Hydralazine HCl (Apresoline) 10 mg SLOW IVP Q4H PRN PRN Reason: Systolic BP > 160 Sodium Chloride (Normal Saline 0.9%) 1,000 mls @ 100 mls/hr IV .Q10H [facility] Last Admin: 08/16/17 23:22 Dose: 1,000 mls Potassium Chloride 40 meq/ (Sodium Chloride) 270 mls @ 135 mls/hr IVPB ASDIR PRN PRN Reason: FOR SERUM K+ 2.5 - 3.5 Potassium Chloride 40 meq/ (Device) 100 mls @ 50 mls/hr IVPB ASDIR PRN PRN Reason: FOR SERUM K+ 2.5 - 3.5 Magnesium Sulfate 1 gm/ Sodium (Chloride) 102 mls @ 102 mls/hr IV PRN PRN PRN Reason: MAG LEVEL 1.4 - 2.0 Magnesium Sulfate 2 gm/ Device 100 mls @ 100 mls/hr IVPB ASDIR PRN PRN Reason: MAGNESIUM < 1.4 Potassium Phosphate 9 mmol/ (Sodium Chloride) 103 mls @ 25.75 mls/hr IVPB ASDIR PRN PRN Reason: Phosphate 1.0-1.8 Potassium Phosphate 12 mmol/ (Sodium Chloride) 254 mls @ 63.5 mls/hr IV ASDIR PRN PRN Reason: Serum phosphate 0.5-0.9 Potassium Phosphate 15 mmol/ (Sodium Chloride) 255 mls @ 63.75 mls/hr IV ASDIR PRN PRN Reason: Serum Phos < 0.5 Fentanyl Citrate 2,000 mcg/ (Sodium Chloride) 100 mls @ 0 mls/hr IV INF HAWA PRN Reason: As Directed Fentanyl Citrate (Fentanyl Bolus) 250 mls @ 0 mls/hr IVPB PRN PRN; As Directed PRN Reason: Breakthrough pain Lactulose (Lactulose) 10 gm PO DAILYPRN PRN PRN Reason: Constipation Levetiracetam (Keppra Oral Solution) 1,000 mg PO BID [facility] Last Admin: 08/16/17 20:44 Dose: 1,000 mg Loratadine (Claritin) 10 mg PO DAILYPRN PRN PRN Reason: Sinus Symptoms Lorazepam (Ativan) 2 mg SLOW IVP Q2H PRN PRN Reason: Anxiety to achieve Bey 2-3 Stop: 09/14/17 19:05 Last Admin: 08/16/17 21:01 Dose: 2 mg Lorazepam (Ativan) 2 mg SLOW IVP Q4H PRN PRN Reason: Seizures Last Admin: 08/16/17 11:59 Dose: 2 mg Magnesium Oxide (Magnesium Oxide) 400 mg PO BIDPRN PRN PRN Reason: FOR SERUM MAG 1.4 - 2.0 Magnesium Oxide (Magnesium Oxide) 800 mg PO PRN PRN PRN Reason: FOR SERUM MAG < 1.4 Metoprolol Tartrate (Lopressor) 12.5 mg PER TUBE DAILY [facility] Last Admin: 08/16/17 09:00 Dose: Not Given Miscellaneous Medication (Phos-Nak) 1 pkt PO TIDPRN PRN PRN Reason: FOR PHOS LEVEL 1.0 - 1.8 Miscellaneous Medication (Phos-Nak) 2 pkt PO TIDPRN PRN PRN Reason: FOR PHOS LEVEL 0.5 - 1.0 Morphine Sulfate (Morphine) 2 mg SLOW IVP Q2H PRN PRN Reason: .BREAKTHROUGH PAIN Ccu Electrolyte (Replacement Protocol) 0 each FS PRN PRN PRN Reason: FOR ELECTROLYTE REPLACEMENT Ondansetron HCl (Zofran) 4 mg IVP Q6H PRN PRN Reason: Nausea/Vomiting Phenytoin Sodium (Dilantin) 100 mg PO TID [facility] Last Admin: 08/16/17 20:44 Dose: 100 mg Potassium Chloride (K-Dur) 40 meq PO ASDIR PRN PRN Reason: FOR SERUM K+ 2.5 - 3.5 Potassium Chloride (Klor-Con) 40 meq PER TUBE ASDIR PRN PRN Reason: FOR SERUM K+ 2.5-3.5 Last Admin: 08/17/17 05:45 Dose: 40 meq Propofol (Diprivan) 1,000 mg IV INF PRN; Protocol PRN Reason: TO ACHIEVE BEY SCORE 2-3 Stop: 09/14/17 19:05 Last Admin: 08/16/17 14:27 Dose: 1,000 mg Senna (Senokot) 2 tab PO HSPRN PRN PRN Reason: Constipation Sodium Chloride (Flush - Normal Saline) 10 ml IVF Q12HR [facility] Last Admin: 08/16/17 20:44 Dose: 10 ml Sodium Chloride (Flush - Normal Saline) 10 ml IVF PRN PRN PRN Reason: Saline Flush MAR Reviewed: Yes Vital Signs and I&O: Vital Signs Temp 99.4 F 08/17/17 04:00 Pulse 87 08/17/17 06:38 Resp 22 H 08/17/17 06:37 BP 123/64 08/17/17 06:38 Pulse Ox 99 08/17/17 06:37 Intake & Output 08/16/17 08/17/17 08/17/17 18:59 06:59 18:59 Intake Total 1472 1881 Output Total 343 385 Balance 1129 1496 Weight 168 lb 6.931 oz Intake: Intake, IV Amount 1372 1276 Propofol 1000 mg (See 164 Protocol) IV INF PRN Rx#: [id number] Propofol 1000 mg (See 61 Protocol) IV INF PRN Rx#: [id number] Sodium Chloride 0.9% 1, 1208 1215 000 ml @ 100 mls/hr IV . Q10H [facility] Rx#:[id number] Tube Feeding 455 Tube Irrigant 100 150 Output: Output, Mack 343 385 Other: Voiding Method Indwelling Catheter Indwelling Catheter # Bowel Movements 1 0 Spontaneous Breathing Test: not done CCU Progress Note: Exam - Physical Exam Deviation from normal: not responding to commands HEENT: PERRLA Neck: no nodes, no JVD Cardiovascular: RRR, no significant murmur Respiratory: rhonchi Gastrointestinal: soft, non-tender Musculoskeletal: no edema Deviation from normal: flexes R arm to stimulation, extends L arm to stimulation Lymphatic: no nodes Deviation from normal: on sedation Skin: no rash CCU Progress Note: Data - Labs Result Diagrams: 08/16/17 04:29 08/17/17 03:15 Lab results: Laboratory Results 08/16/17 08/16/17 08/16/17 04:29 04:29 06:50 WBC 11.5 H RBC 4.31 L Hgb 13.4 L Hct 39.9 L MCV 92.4 MCH 31.1 H MCHC 33.6 RDW 12.2 Plt Count 220 MPV 7.3 L Neutrophils % 81.4 H Lymphocytes % 7.8 L Monocytes % 9.0 Eosinophils % 1.7 Basophils % 0.2 Neutrophils # 9.4 H Lymphocytes # 0.9 L Monocytes # 1.0 H Eosinophils # 0.2 Basophils # 0.0 Specimen Type ARTERIAL Puncture Site RRA Bicarbonate Actual 21.9 L ABG pH 7.45 ABG pCO2 32.1 L ABG pO2 102.1 H ABG O2 Sat Calc/Cal 98.1 ABG O2 Content 15.6 L ABG Base Excess -1.3 ABG Hematocrit 34.6 L ABG Hemoglobin 11.4 L ABG Oxyhemoglobin 96.2 ABG Carboxyhemoglobin 1.1 ABG Methemoglobin 0.7 Vinod Test POSITIVE A-a O2 Gradient 70.175 H Ionized Calcium 1.1 L Mode of Support SIMV/PS Mechanical Rate 14 Inspired O2 30 Tidal Volume 500 Pressure Support 10 PEEP or CPAP 5.0 Sodium 140 141 Potassium 3.7 3.6 L Chloride 106 105 Carbon Dioxide 24 Anion Gap 14 BUN 19 Creatinine 1.32 H Estimated GFR (MDRD) 52 Glucose 130 H Calcium 8.8 08/17/17 08/17/17 03:15 06:45 WBC RBC Hgb Hct MCV MCH MCHC RDW Plt Count MPV Neutrophils % Lymphocytes % Monocytes % Eosinophils % Basophils % Neutrophils # Lymphocytes # Monocytes # Eosinophils # Basophils # Specimen Type ARTERIAL Puncture Site LRA Bicarbonate Actual 20.0 L ABG pH 7.45 ABG pCO2 29.7 L ABG pO2 65.9 L ABG O2 Sat Calc/Cal 96.7 ABG O2 Content 15.2 L ABG Base Excess -3.1 L ABG Hematocrit 32.4 L ABG Hemoglobin 11.4 L ABG Oxyhemoglobin ABG Carboxyhemoglobin 1.2 ABG Methemoglobin 0.7 Vinod Test POSITIVE A-a O2 Gradient 110.875 H Ionized Calcium 1.1 L Mode of Support SIMV.PSV Mechanical Rate 12 Inspired O2 30 Tidal Volume 450 Pressure Support 10 PEEP or CPAP 5.0 Sodium 139 139 Potassium 3.5 3.6 L Chloride 110 H 107 H Carbon Dioxide 20 L Anion Gap 13 BUN 20 Creatinine 1.22 Estimated GFR (MDRD) 57 Glucose 144 H Calcium 7.9 - ABG Interpretation ABG Results: ABG pH 7.45 (7.35-7.45) 08/17/17 06:45 ABG pCO2 29.7 mmHg (35.0-45.0) L 08/17/17 06:45 ABG O2 Sat Calc/Cal 96.7 % (94.0-100.0) 08/17/17 06:45 ABG Base Excess -3.1 mEq/L (0 (+/-) 2.5) L 08/17/17 06:45 Interpretation: respiratory alkalosis - Radiology Interpretation Chest x-ray Additional comments: stable CCU Progress Note: A/P - Plan Plan: Assessment: Acute respiratory failure after seizures Status epilepticus Previous stroke Plan: adjust vent await MRI spoke to yesterday. I think she is unrealistic in terms of expectation I don't think it is safe to extubate him with his current mental status, unless we are doing so for palliative measures He has a DNR
--- NOTE | 2017-08-17 08:49 | RAD ---
CHEST 1 VIEW: Date: 08/17/17 HISTORY: Dyspnea. Intubated. Follow-up. COMPARISON: 08/16/17. FINDINGS: Cardiac silhouette is magnified by projection. Patient remains rotated rightward. Pulmonary vasculatu re is now engorged with mild patchy bibasilar infiltrates. Lines and tubes appear unchanged in positi on. No evidence of pneumothorax. IMPRESSION: Increasing pulmonary vascular congestion. POS: [facility]
[2017-08-17] MEDS: Sodium Chloride 0.9% 1,000 ML IV SCH ×2 (09:35→20:21)
[2017-08-17] MEDS: Piperacillin/Tazobactam 3.375 GM in Sodium Chloride 0.9% 100 ML IVPB SCH ×3 (09:35→20:20)
[2017-08-17] MEDS: Famotidine 20 MG TAB PER TUBE SCH (09:35)
[2017-08-17] MEDS: Aspirin 325 MG TAB PER TUBE SCH (09:35)
[2017-08-17] MEDS: Enoxaparin Sodium 40 MG/0.4 ML SYRINGE SC SCH (09:36)
[2017-08-17] MEDS: Metoprolol Tartrate 25 MG TAB PER TUBE SCH (09:36)
[2017-08-17] MEDS: levETIRAcetam 500 mg/5 ml Oral Solution PO SCH ×2 (09:36→20:22)
[2017-08-17] MEDS: Propofol 1,000 MG/100 ML VIAL IV PRN (09:37)
[2017-08-17] MEDS: Acetaminophen 325 MG TAB PO PRN ×2 (09:44→20:21)
--- NOTE | 2017-08-17 14:46 | PDOC.PN ---
- Subjective Encounter Start Date: 08/17/17 Encounter Start Time: 14:45 Subjective: remains intubated.care discussed w at bedside - Objective MAR Reviewed: Yes Vital Signs & Weight: Vital Signs (12 hours) Temp Pulse Resp BP Pulse Ox 08/17/17 14:43 100 19 99 08/17/17 10:40 101 H 111/52 L 08/17/17 08:00 101.5 F H 08/17/17 06:38 87 123/64 08/17/17 06:37 92 22 H 99 08/17/17 06:00 27 H 08/17/17 04:00 99.4 F 22 H Weight Admit Weight 168 lb 6.928 oz Weight 168 lb 6.931 oz Most Recent Monitor Data Heart Rate from ECG 101 NIBP 111/52 NIBP BP-Mean 82 Respiration from ECG 21 SpO2 100 I&O: 08/16/17 08/17/17 08/18/17 06:59 06:59 06:59 Intake Total 1289 3353 Output Total 600 728 245 Balance 689 2625 -245 Result Diagrams: 08/16/17 04:29 08/17/17 03:15 Additional Labs: Microbiology 04/19/16 02:40 Urine Straight Catheter Urine Culture - Final Enterococcus species Phys Exam - Physical Examination Constitutional: NAD jerking on and off. reports hiccups HEENT: PERRLA, moist MMs, sclera anicteric, oral pharynx no lesions ETT Neck: no JVD Caorse b/l w basilar carckles Cardiovascular: RRR, no significant murmur Gastrointestinal: soft, no distention, positive bowel sounds Musculoskeletal: no edema, pulses present sedated sedated Skin: no rash Dx/Plan (1) Status epilepticus Code(s): G40.901 - EPILEPSY, UNSP, NOT INTRACTABLE, WITH STATUS EPILEPTICUS Status: Acute Comment: Resolved. EEG pending. (2) UTI (urinary tract infection) Status: Acute (3) Fever Code(s): R50.9 - FEVER, UNSPECIFIED Status: Acute Comment: Likly cerebral.Rule out sepsis (4) Aspiration pneumonia Code(s): J69.0 - PNEUMONITIS DUE TO INHALATION OF FOOD AND VOMIT Status: Acute Comment: on Zosyn (5) HIRO (acute kidney injury) Code(s): N17.9 - ACUTE KIDNEY FAILURE, UNSPECIFIED Status: Resolved (6) h/o CVA with residual effects Status: Chronic (7) CAD (coronary artery disease) Code(s): I25.10 - ATHSCL HEART DISEASE OF [place] CORONARY ARTERY W/O ANG PCTRS Status: Acute (8) Hyperlipidemia Code(s): E78.5 - HYPERLIPIDEMIA, UNSPECIFIED Status: Chronic Comment: Statin agent once PEG/Dobhoff or oral route available (9) Hypertension Code(s): I10 - ESSENTIAL (PRIMARY) HYPERTENSION Status: Chronic Qualifiers: - Plan plan discussed w/ family, continue antibiotics, PT/OT, social and human services assistant, DVT proph w/SCDs vent support per PCCM.c -: cont empiric ABx for aspiration PNA.Urine Cx with enterococcus-rodríguez senstitv -: Remains DNR.confirmed w . -: cont IVF. BP marginal. -: CXR,labs in am.supportive care.poor prognosis * . Review of Systems - Review of Systems Other: unobtainable due to intubation and sedation - Medications/Allergies Allergies/Adverse Reactions: Allergies Allergy/AdvReac Type Severity Reaction Status Date / Time No Known Allergies Allergy Verified 08/15/17 20:52 Medications: Current Medications Acetaminophen (Tylenol) 650 mg PO Q6H PRN PRN Reason: Fever > 101 Last Admin: 08/17/17 09:44 Dose: 650 mg Albuterol/Ipratropium (Duoneb) 3 ml NEB [id number] [facility] Last Admin: 08/17/17 14:43 Dose: 3 ml Aspirin (Aspirin) 325 mg PER TUBE DAILY [facility] Last Admin: 08/17/17 09:35 Dose: 325 mg Benzonatate (Tessalon) 100 mg PO Q4H PRN PRN Reason: Cough Bisacodyl (Dulcolax) 10 mg PO DAILYPRN PRN PRN Reason: Constipation Clonidine (Catapres) 0.1 mg PO Q4H PRN PRN Reason: Systolic BP > 150 Enoxaparin Sodium (Lovenox) 40 mg SC 0900 [facility] Last Admin: 08/17/17 09:36 Dose: 40 mg Famotidine (Pepcid) 20 mg PER TUBE DAILY [facility] Last Admin: 08/17/17 09:35 Dose: 20 mg Guaifenesin (Robitussin Sf) 200 mg PO Q4H PRN PRN Reason: Cough Hydralazine HCl (Apresoline) 10 mg SLOW IVP Q4H PRN PRN Reason: Systolic BP > 160 Sodium Chloride (Normal Saline 0.9%) 1,000 mls @ 100 mls/hr IV .Q10H [facility] Last Admin: 08/17/17 09:35 Dose: 1,000 mls Potassium Chloride 40 meq/ (Sodium Chloride) 270 mls @ 135 mls/hr IVPB ASDIR PRN PRN Reason: FOR SERUM K+ 2.5 - 3.5 Potassium Chloride 40 meq/ (Device) 100 mls @ 50 mls/hr IVPB ASDIR PRN PRN Reason: FOR SERUM K+ 2.5 - 3.5 Magnesium Sulfate 1 gm/ Sodium (Chloride) 102 mls @ 102 mls/hr IV PRN PRN PRN Reason: MAG LEVEL 1.4 - 2.0 Magnesium Sulfate 2 gm/ Device 100 mls @ 100 mls/hr IVPB ASDIR PRN PRN Reason: MAGNESIUM < 1.4 Potassium Phosphate 9 mmol/ (Sodium Chloride) 103 mls @ 25.75 mls/hr IVPB ASDIR PRN PRN Reason: Phosphate 1.0-1.8 Potassium Phosphate 12 mmol/ (Sodium Chloride) 254 mls @ 63.5 mls/hr IV ASDIR PRN PRN Reason: Serum phosphate 0.5-0.9 Potassium Phosphate 15 mmol/ (Sodium Chloride) 255 mls @ 63.75 mls/hr IV ASDIR PRN PRN Reason: Serum Phos < 0.5 Fentanyl Citrate 2,000 mcg/ (Sodium Chloride) 100 mls @ 0 mls/hr IV INF HAWA PRN Reason: As Directed Fentanyl Citrate (Fentanyl Bolus) 250 mls @ 0 mls/hr IVPB PRN PRN; As Directed PRN Reason: Breakthrough pain Piperacillin Sod/Tazobactam (Sod 3.375 gm/ Sodium Chloride) 100 mls @ 200 mls/ hr IVPB 0200,0800,1400,2000 [facility] Last Admin: 08/17/17 14:24 Dose: 100 mls Lactulose (Lactulose) 10 gm PO DAILYPRN PRN PRN Reason: Constipation Levetiracetam (Keppra Oral Solution) 1,000 mg PO BID [facility] Last Admin: 08/17/17 09:36 Dose: 1,000 mg Loratadine (Claritin) 10 mg PO DAILYPRN PRN PRN Reason: Sinus Symptoms Lorazepam (Ativan) 2 mg SLOW IVP Q2H PRN PRN Reason: Anxiety to achieve Bey 2-3 Stop: 09/14/17 19:05 Last Admin: 08/16/17 21:01 Dose: 2 mg Lorazepam (Ativan) 2 mg SLOW IVP Q4H PRN PRN Reason: Seizures Last Admin: 08/16/17 11:59 Dose: 2 mg Magnesium Oxide (Magnesium Oxide) 400 mg PO BIDPRN PRN PRN Reason: FOR SERUM MAG 1.4 - 2.0 Magnesium Oxide (Magnesium Oxide) 800 mg PO PRN PRN PRN Reason: FOR SERUM MAG < 1.4 Metoprolol Tartrate (Lopressor) 12.5 mg PER TUBE DAILY [facility] Last Admin: 08/17/17 09:36 Dose: Not Given Miscellaneous Medication (Phos-Nak) 1 pkt PO TIDPRN PRN PRN Reason: FOR PHOS LEVEL 1.0 - 1.8 Miscellaneous Medication (Phos-Nak) 2 pkt PO TIDPRN PRN PRN Reason: FOR PHOS LEVEL 0.5 - 1.0 Morphine Sulfate (Morphine) 2 mg SLOW IVP Q2H PRN PRN Reason: .BREAKTHROUGH PAIN [facility] Electrolyte (Replacement Protocol) 0 each FS PRN PRN PRN Reason: FOR ELECTROLYTE REPLACEMENT Ondansetron HCl (Zofran) 4 mg IVP Q6H PRN PRN Reason: Nausea/Vomiting Phenytoin Sodium (Dilantin) 100 mg PO TID [facility] Last Admin: 08/17/17 14:36 Dose: 100 mg Potassium Chloride (K-Dur) 40 meq PO ASDIR PRN PRN Reason: FOR SERUM K+ 2.5 - 3.5 Potassium Chloride (Klor-Con) 40 meq PER TUBE ASDIR PRN PRN Reason: FOR SERUM K+ 2.5-3.5 Last Admin: 08/17/17 05:45 Dose: 40 meq Propofol (Diprivan) 1,000 mg IV INF PRN; Protocol PRN Reason: TO ACHIEVE BEY SCORE 2-3 Stop: 09/14/17 19:05 Last Admin: 08/17/17 09:37 Dose: 1,000 mg Senna (Senokot) 2 tab PO HSPRN PRN PRN Reason: Constipation Sodium Chloride (Flush - Normal Saline) 10 ml IVF Q12HR [facility] Last Admin: 08/17/17 09:37 Dose: 10 ml Sodium Chloride (Flush - Normal Saline) 10 ml IVF PRN PRN PRN Reason: Saline Flush
--- NOTE | 2017-08-17 16:49 | PRG ---
DATE OF SERVICE: 08/17/2017 SUBJECTIVE: Mr. Hennessy admitted with status epilepticus. 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 He was found to have continuous right focal motor twitching and was started on Keppra and Dilantin. He continues to have episodes of jerking on the right side which are primarily present when he is being stimulated. According to the nurse, there are less frequent when he is not stimulated. He had an EEG done yesterday which did not show any electrographic seizur e. They are associated with these jerking. OBJECTIVE: VITAL SIGNS: Blood pressure of 117/49, pulse of 104, temperature of 101.5, respirations of 23 on mec hanical ventilation. GENERAL: Intubated, sedated male, in no apparent distress. RESPIRATORY: Clear to auscultation bilaterally. CARDIOVASCULAR: Regular rate and rhythm. NEUROLOGICAL: Essentially unchanged when compared to yesterday. Labs are reviewed which included BMP, which is significant for glucose of 144, otherwise unremarkable . IMPRESSION: 1. Status epilepticus. 2. Myoclonic jerking. 3. Prior left middle cerebral artery stroke. PLAN: Mr. Hennessy is a 81-year-old male with a prior history of left MCA stroke, presented wi th status epilepticus. His EEG did not show any electrographic seizures. They are associated with h is right-sided focal motor jerking. These are likely myoclonic jerks. At this time, I would recomme nd continuing him on Keppra and Dilantin. I will check Dilantin level in the morning. I am still aw aiting for the MRI brain to be done. I will not be here over the weekend and thus the patient will b e seen by one of my colleagues, Dr. Kendall Wilde over the weekend. I will follow up on Sunday and pl an further recommendations at that time. Continue supportive care.
[2017-08-17] MEDS: Lorazepam 2 MG/ML VIAL SLOW IVP PRN (18:30)
[2017-08-17] MEDS: Phenytoin Sodium 100 MG/2 ML VIAL SLOW IVP SCH (20:35)
[2017-08-18] MEDS: Acetaminophen 325 MG TAB PO PRN ×2 (02:10→08:57)
[2017-08-18] MEDS: Piperacillin/Tazobactam 3.375 GM in Sodium Chloride 0.9% 100 ML IVPB SCH ×4 (02:10→21:15)
[2017-08-18 05:29] LABS: Anion Gap 9 mmol/L (10-20); BUN (Urea Nitrogen) 20 mg/dL (8.4-25.7); Calc. Creatinine Clearance 53 mL/min (70-130); Calcium 7.5 mg/dL (7.8-10.44); Carbon Dioxide 19 mmol/L (23-31); Chloride 114 mmol/L (98-107); Estimated GFR-MDRD 57; Glucose 155 mg/dL (83-110); Potassium 3.4 mmol/L (3.5-5.1); Sodium 139 mmol/L (136-145)
[2017-08-18] MEDS: Propofol 1,000 MG/100 ML VIAL IV PRN ×2 (05:37→22:22)
[2017-08-18] MEDS: Sodium Chloride 0.9% 1,000 ML IV SCH ×2 (05:42→18:31)
[2017-08-18 08:03] LABS: Actual Bicarbonate (HCO3a) 17.2 mEq/L (22-26); Base Excess (BEa) -6.1 mEq/L (0 (+/-) 2.5); CO2 Tension 36.9 mmHg (35.0-45.0); Hemoglobin (Hb) 10.5 g/dL (14.0-18.0); O2 Tension (PaO2) 82.1 mmHg (80.0-100.0); pH, Arterial 7.42 (7.35-7.45)
[2017-08-18 08:04] LABS: Calcium, Ionized 1.1 mmol/L (1.12-1.30); Puncture Site LBA
[2017-08-18 08:05] LABS: ALV-art Gradient 85.675 (0-20)
[2017-08-18] MEDS: levETIRAcetam 500 mg/5 ml Oral Solution PO SCH ×2 (08:52→21:18)
[2017-08-18] MEDS: Metoprolol Tartrate 25 MG TAB PER TUBE SCH (08:52)
[2017-08-18] MEDS: Aspirin 325 MG TAB PER TUBE SCH (08:52)
[2017-08-18] MEDS: Enoxaparin Sodium 40 MG/0.4 ML SYRINGE SC SCH (08:52)
[2017-08-18] MEDS: Famotidine 20 MG TAB PER TUBE SCH (08:52)
--- NOTE | 2017-08-18 09:04 | RAD ---
CHEST 1 VIEW: Date: 08/18/17 HISTORY: Dyspnea. Follow-up. COMPARISON: 08/17/17. FINDINGS: Cardiac silhouette is magnified by projection. Pulmonary vasculature remains engorged. Patient is rot ated rightward. Patchy bilateral perihilar and bibasilar infiltrates are similar in appearance to the previous exam. Lines and tubes are unchanged in position. IMPRESSION: Pulmonary vascular congestion and other findings are stable. POS: [facility]
[2017-08-18] MEDS: Phenytoin Sodium 100 MG/2 ML VIAL SLOW IVP SCH ×3 (09:46→21:21)
[2017-08-18] MEDS ORDERED: Vecuronium 10 MG VIAL ONE (10:42)
[2017-08-18] MEDS ORDERED: Vecuronium 10 MG VIAL IV SCH (10:50)
--- NOTE | 2017-08-18 13:07 | MRI ---
MRI BRAIN NONCONTRAST: DATE: 08/18/17 TIME: 1115 HOURS HISTORY: 81-year-old male in status epilepticus. Dr. Garcia reported the findings by telephone to nurse, Vero Manzano, at 1132 hours on 08/18/17. She was instructed to notify Dr. Peralta as soon as possible. COMPARISON: Prior MRI of 11/21/16. FINDINGS: There is a new finding of a very large region of cytotoxic edema involving the entire right basal griselda glia, right insula, right temporal lobe operculum, anterior temporal tip, and the suprasylvian portio n of the right frontal lobe. This effaces the local sulci, and causes severe extrinsic compression an d severe narrowing the body of the right lateral ventricle, and causing a right to left midline shift of the septum pellucidum a distance of 0.6 cm. This infarction has strongly restricted diffusion. Wi thin the large right acute infarction, there is an approximately 1 x 0.5 x 2.5 cm acute hemorrhage in volving a large portion of the right basal ganglia. There is a smaller, 1 x 0.5 x 1 cm, component of acute hemorrhage involving the right caudate head. In the contralateral left cerebral hemisphere, there is a large region of encephalomalacia and gliosi s involving the left frontal, temporal, and parietal lobes, and with involvement of left basal gangli a. This old large left MCA territory infarction has hemosiderin staining throughout, especially at th e basal ganglia portion, indicating hemorrhagic conversion of initially bland infarction. It is possi ble that the basal ganglia component of hemorrhage could have been primary hemorrhage rather than hem orrhagic conversion. There is laminar necrosis involving the cortical components of the old left-side d infarction. The third ventricle is also displaced to the left. The basal cisterns are patent and clear. No acute intra-axial hemorrhage. IMPRESSION: 1)New large right middle cerebral artery territory acute infarction causing mass effect, with subfalc ine herniation. 2) Acute hemorrhage within the right corpus striatum component of this acute large right infarction 3) Large old infarction in the contralateral left middle cerebral artery territory, with prior hemorr hagic conversion. CODE CR. JN R ADDENDUM: Dr. Garcia discussed all the findings by telephone with hospitalist, Dr. Jack, at 1248 hours on 08/18. CODE CR. POS: [facility]
--- NOTE | 2017-08-18 14:42 | PDOC.PN ---
- Subjective Encounter Start Date: 08/18/17 Encounter Start Time: 14:40 Subjective: MRI results reviewed with radiologist & then family -: pt remains un weanable - Objective MAR Reviewed: Yes Vital Signs & Weight: Vital Signs (12 hours) Temp Pulse Resp BP Pulse Ox 08/18/17 14:04 82 112/48 L 08/18/17 10:00 100.2 F H 10 L 08/18/17 08:00 102.2 F H 28 H 08/18/17 07:46 97 108/50 L 08/18/17 07:33 92 28 H 100 08/18/17 06:00 27 H 08/18/17 04:00 99.9 F H 30 H Weight Admit Weight 168 lb 6.928 oz Weight 168 lb 6.931 oz Most Recent Monitor Data Heart Rate from ECG 83 NIBP 112/48 NIBP BP-Mean 59 Respiration from ECG 21 SpO2 100 I&O: 08/17/17 08/18/17 08/19/17 06:59 06:59 06:59 Intake Total 3353 4469.8 60 Output Total 728 1104 265 Balance 2625 3365.8 -205 Result Diagrams: 08/16/17 04:29 08/18/17 04:33 Additional Labs: Microbiology 08/17/17 15:40 Urine bah catheter Urine Culture - Preliminary NO GROWTH AT 12 HOURS 08/17/17 09:16 Venous blood - Right Hand Blood Culture - Preliminary Specimen has been received and culture in progress. No Growth to date. 08/17/17 09:10 Venous blood - Left Hand Blood Culture - Preliminary Specimen has been received and culture in progress. No Growth to date. Radiology Reviewed by me: Yes (MRI-large R MCA infract w hemorrhage/herniation) Phys Exam - Physical Examination Constitutional: NAD sedated,intubated. at bedside HEENT: PERRLA, moist MMs, sclera anicteric, oral pharynx no lesions Neck: no JVD Respiratory: no wheezing, no rales, no rhonchi coarse breath sounds b/l Cardiovascular: RRR, no significant murmur Gastrointestinal: soft, no distention, positive bowel sounds Musculoskeletal: no edema, pulses present sedated sedated Skin: no rash Dx/Plan (1) Acute CVA (cerebrovascular accident) Code(s): I63.9 - CEREBRAL INFARCTION, UNSPECIFIED Status: Acute Comment: L MCA distribution with tPa initially, see #1 above. (2) Status epilepticus Code(s): G40.901 - EPILEPSY, UNSP, NOT INTRACTABLE, WITH STATUS EPILEPTICUS Status: Acute Comment: Resolved. EEG Negative (3) UTI (urinary tract infection) Status: Acute Comment: Cx pending (4) Fever Code(s): R50.9 - FEVER, UNSPECIFIED Status: Acute Comment: Likly cerebral.Rule out sepsis (5) Aspiration pneumonia Code(s): J69.0 - PNEUMONITIS DUE TO INHALATION OF FOOD AND VOMIT Status: Acute Comment: on Zosyn (6) HIRO (acute kidney injury) Code(s): N17.9 - ACUTE KIDNEY FAILURE, UNSPECIFIED Status: Resolved (7) h/o CVA with residual effects Status: Chronic (8) CAD (coronary artery disease) Code(s): I25.10 - ATHSCL HEART DISEASE OF [place] CORONARY ARTERY W/O ANG PCTRS Status: Acute (9) Hyperlipidemia Code(s): E78.5 - HYPERLIPIDEMIA, UNSPECIFIED Status: Chronic Comment: Statin agent once PEG/Dobhoff or oral route available (10) Hypertension Code(s): I10 - ESSENTIAL (PRIMARY) HYPERTENSION Status: Chronic Qualifiers: - Plan continue antibiotics, PT/OT, DVT proph w/SCDs MRI results discussed w & multiple other family members. -: all Qs answered.Federica very poor outcome w herniation & swelling -: Neurology & PCCM to address Vent status & comfort care -: pt remains DNR. -: DC lovenox due to hemoorahge in the infarct * .monitor clinically. * am labs Review of Systems - Review of Systems Other: can not be obtained due to Sedation,intubation - Medications/Allergies Allergies/Adverse Reactions: Allergies Allergy/AdvReac Type Severity Reaction Status Date / Time No Known Allergies Allergy Verified 08/15/17 20:52 Medications: Current Medications Acetaminophen (Tylenol) 650 mg PO Q6H PRN PRN Reason: Fever > 101 Last Admin: 08/18/17 08:57 Dose: 650 mg Albuterol/Ipratropium (Duoneb) 3 ml NEB [id number] HAWA Aspirin (Aspirin) 325 mg PER TUBE DAILY HAWA Last Admin: 08/18/17 08:52 Dose: 325 mg Benzonatate (Tessalon) 100 mg PO Q4H PRN PRN Reason: Cough Bisacodyl (Dulcolax) 10 mg PO DAILYPRN PRN PRN Reason: Constipation Clonidine (Catapres) 0.1 mg PO Q4H PRN PRN Reason: Systolic BP > 150 Enoxaparin Sodium (Lovenox) 40 mg SC 0900 [facility] Last Admin: 08/18/17 08:52 Dose: 40 mg Famotidine (Pepcid) 20 mg PER TUBE DAILY [facility] Last Admin: 08/18/17 08:52 Dose: 20 mg Guaifenesin (Robitussin Sf) 200 mg PO Q4H PRN PRN Reason: Cough Hydralazine HCl (Apresoline) 10 mg SLOW IVP Q4H PRN PRN Reason: Systolic BP > 160 Sodium Chloride (Normal Saline 0.9%) 1,000 mls @ 100 mls/hr IV .Q10H [facility] Last Admin: 08/18/17 05:42 Dose: Not Given Potassium Chloride 40 meq/ (Sodium Chloride) 270 mls @ 135 mls/hr IVPB ASDIR PRN PRN Reason: FOR SERUM K+ 2.5 - 3.5 Potassium Chloride 40 meq/ (Device) 100 mls @ 50 mls/hr IVPB ASDIR PRN PRN Reason: FOR SERUM K+ 2.5 - 3.5 Magnesium Sulfate 1 gm/ Sodium (Chloride) 102 mls @ 102 mls/hr IV PRN PRN PRN Reason: MAG LEVEL 1.4 - 2.0 Magnesium Sulfate 2 gm/ Device 100 mls @ 100 mls/hr IVPB ASDIR PRN PRN Reason: MAGNESIUM < 1.4 Potassium Phosphate 9 mmol/ (Sodium Chloride) 103 mls @ 25.75 mls/hr IVPB ASDIR PRN PRN Reason: Phosphate 1.0-1.8 Potassium Phosphate 12 mmol/ (Sodium Chloride) 254 mls @ 63.5 mls/hr IV ASDIR PRN PRN Reason: Serum phosphate 0.5-0.9 Potassium Phosphate 15 mmol/ (Sodium Chloride) 255 mls @ 63.75 mls/hr IV ASDIR PRN PRN Reason: Serum Phos < 0.5 Fentanyl Citrate 2,000 mcg/ (Sodium Chloride) 100 mls @ 0 mls/hr IV INF HAWA PRN Reason: As Directed Fentanyl Citrate (Fentanyl Bolus) 250 mls @ 0 mls/hr IVPB PRN PRN; As Directed PRN Reason: Breakthrough pain Piperacillin Sod/Tazobactam (Sod 3.375 gm/ Sodium Chloride) 100 mls @ 200 mls/ hr IVPB 0200,0800,1400,2000 [facility] Last Admin: 08/18/17 07:43 Dose: 100 mls Lactulose (Lactulose) 10 gm PO DAILYPRN PRN PRN Reason: Constipation Levetiracetam (Keppra Oral Solution) 1,000 mg PO BID [facility] Last Admin: 08/18/17 08:52 Dose: 1,000 mg Loratadine (Claritin) 10 mg PO DAILYPRN PRN PRN Reason: Sinus Symptoms Lorazepam (Ativan) 2 mg SLOW IVP Q2H PRN PRN Reason: Anxiety to achieve Bey 2-3 Stop: 09/14/17 19:05 Last Admin: 08/16/17 21:01 Dose: 2 mg Lorazepam (Ativan) 2 mg SLOW IVP Q4H PRN PRN Reason: Seizures Last Admin: 08/17/17 18:30 Dose: 2 mg Magnesium Oxide (Magnesium Oxide) 400 mg PO BIDPRN PRN PRN Reason: FOR SERUM MAG 1.4 - 2.0 Magnesium Oxide (Magnesium Oxide) 800 mg PO PRN PRN PRN Reason: FOR SERUM MAG < 1.4 Metoprolol Tartrate (Lopressor) 12.5 mg PER TUBE DAILY [facility] Last Admin: 08/18/17 08:52 Dose: 12.5 mg Miscellaneous Medication (Phos-Nak) 1 pkt PO TIDPRN PRN PRN Reason: FOR PHOS LEVEL 1.0 - 1.8 Miscellaneous Medication (Phos-Nak) 2 pkt PO TIDPRN PRN PRN Reason: FOR PHOS LEVEL 0.5 - 1.0 Morphine Sulfate (Morphine) 2 mg SLOW IVP Q2H PRN PRN Reason: .BREAKTHROUGH PAIN Ccu Electrolyte (Replacement Protocol) 0 each FS PRN PRN PRN Reason: FOR ELECTROLYTE REPLACEMENT Ondansetron HCl (Zofran) 4 mg IVP Q6H PRN PRN Reason: Nausea/Vomiting Phenytoin Sodium (Dilantin) 100 mg SLOW IVP TID [facility] Last Admin: 08/18/17 09:46 Dose: 100 mg Potassium Chloride (K-Dur) 40 meq PO ASDIR PRN PRN Reason: FOR SERUM K+ 2.5 - 3.5 Potassium Chloride (Klor-Con) 40 meq PER TUBE ASDIR PRN PRN Reason: FOR SERUM K+ 2.5-3.5 Last Admin: 08/18/17 05:37 Dose: 40 meq Propofol (Diprivan) 1,000 mg IV INF PRN; Protocol PRN Reason: TO ACHIEVE BEY SCORE 2-3 Stop: 09/14/17 19:05 Last Admin: 08/18/17 05:37 Dose: 1,000 mg Senna (Senokot) 2 tab PO HSPRN PRN PRN Reason: Constipation Sodium Chloride (Flush - Normal Saline) 10 ml IVF Q12HR [facility] Last Admin: 08/18/17 13:06 Dose: 10 ml Sodium Chloride (Flush - Normal Saline) 10 ml IVF PRN PRN PRN Reason: Saline Flush
--- NOTE | 2017-08-19 00:26 | EKG ---
Test Reason : Blood Pressure : / mmHG Vent. Rate : 114 BPM Atrial Rate : 114 BPM P-R Int : 162 ms QRS Dur : 122 ms QT Int : 350 ms P-R-T Axes : 026 -48 092 degrees QTc Int : 482 ms Sinus tachycardia Left anterior fascicular block Septal infarct , age undetermined Abnormal ECG Confirmed by AUGUSTO JAMA [id number]), assistant editor YARELIS DEL CID ([id number]) on 08/19/2017 12:25:28 AM Referred By: Confirmed By:AUGUSTO JAMA
[2017-08-19] MEDS: Piperacillin/Tazobactam 3.375 GM in Sodium Chloride 0.9% 100 ML IVPB SCH ×3 (02:18→14:44)
[2017-08-19 04:24] LABS: #Eosinphils 0.6 thou/uL (0.0-0.7); #Lymphocytes 0.7 thou/uL (1.20-3.40); #Monocytes 0.7 thou/uL (0.11-0.59); #Neutrophils 6.3 thou/uL (1.40-6.50); %Basophils 0.1 % (0.0-1.0); %Eosinophils 7.1 % (0.0-10.0); %Lymphocytes 8.6 % (21.0-51.0); %Monocytes 8.8 % (0.0-10.0); %Neutrophils 75.3 % (42.0-75.0); Mean Corpuscular Hemoglobin 32.6 pg (27.0-31.0); Mean Corpuscular Volume 93.1 fl (80.0-94.0); Platelet Count 141 thou/uL (130-400); RBC Distribution Width 12.3 % (11.5-14.5); Red Blood Cell (RBC) Count 3.05 mill/uL (4.70-6.10); White Blood Cell (WBC) Count 8.4 thou/uL (4.8-10.8)
[2017-08-19 04:31] LABS: Anion Gap 8 mmol/L (10-20); BUN (Urea Nitrogen) 23 mg/dL (8.4-25.7); Calc. Creatinine Clearance 56 mL/min (70-130); Calcium 7.6 mg/dL (7.8-10.44); Carbon Dioxide 21 mmol/L (23-31); Chloride 116 mmol/L (98-107); Estimated GFR-MDRD 61; Glucose 152 mg/dL (83-110); Potassium 3.7 mmol/L (3.5-5.1); Sodium 141 mmol/L (136-145)
--- NOTE | 2017-08-19 07:51 | RAD ---
CHEST 1 VIEW: Date: 08/19/17 HISTORY: Dyspnea. Follow-up. COMPARISON: 08/18/17. FINDINGS: Cardiac silhouette is magnified by projection. Pulmonary vasculature is now more engorged. Patient is rotated rightward. Bilateral perihilar infiltrates and right upper lobe infiltrate have progressed s omewhat. No evidence of pneumothorax. Lines and tubes are unchanged in position. IMPRESSION: Worsening pulmonary vascular congestion with more prominent right upper lobe infiltrate. POS: [facility]
[2017-08-19] MEDS: Metoprolol Tartrate 25 MG TAB PER TUBE SCH (10:23)
[2017-08-19] MEDS: Famotidine 20 MG TAB PER TUBE SCH (10:23)
[2017-08-19] MEDS: Aspirin 325 MG TAB PER TUBE SCH (10:23)
[2017-08-19] MEDS: levETIRAcetam 500 mg/5 ml Oral Solution PO SCH (10:24)
[2017-08-19] MEDS: Acetaminophen 325 MG TAB PO PRN (10:34)
--- NOTE | 2017-08-19 11:06 | PRG ---
DATE OF SERVICE: 08/18/2017 SUBJECTIVE: Mr. India Hennessy is intubated on the vent. Diprivan and he is getting Keppra and Dilantin for his status epilepticus. unable to assess neurological status. He is to go for an MRI today. He is getting some pink frothy secretions from his ET tube. OBJECTIVE: VITAL SIGNS: His sats are 100%, pulse 95, blood pressure 100/42, respiration 27. I's and O's are 4469 in, 1104 out. Temperature 101. LABORATORY DATA: Electrolytes are normal. PO2 is 82, pCO2 is 35 on a rate of 10, 30% FIO2. His last white count was 11,000 with no left shift. IMPRESSION: 1. Status epilepticus on multiple drugs, scheduled for an MRI today. 2. Respiratory failure . PLAN: I would continue brisa Garvin treatments, supportive care. We will follow. One-half hour critical care time. ZAINAB
[2017-08-19] MEDS: Sodium Chloride 0.9% 1,000 ML IV SCH (11:40)
[2017-08-19] MEDS: Phenytoin Sodium 100 MG/2 ML VIAL SLOW IVP SCH ×2 (12:00→14:45)
--- NOTE | 2017-08-19 12:30 | PDOC.PN ---
- Subjective Encounter Start Date: 08/19/17 Encounter Start Time: 12:23 Subjective: withdraws to tactile and painful stimuli. -: family not in room this morning - Objective MAR Reviewed: Yes Vital Signs & Weight: Vital Signs (12 hours) Temp Pulse Resp BP Pulse Ox 08/19/17 12:03 78 78/33 L 08/19/17 07:45 68 87/36 L 08/19/17 07:44 70 26 H 100 08/19/17 06:00 24 H 08/19/17 04:00 24 H 08/19/17 03:56 99.8 F H 08/19/17 02:02 89 87/34 L 08/19/17 02:00 24 H 08/19/17 00:32 92 91/40 L Weight Admit Weight 168 lb 6.928 oz Weight 168 lb 6.931 oz Most Recent Monitor Data Heart Rate from ECG 75 NIBP 85/39 NIBP BP-Mean 60 Respiration from ECG 23 SpO2 100 I&O: 08/18/17 08/19/17 08/20/17 06:59 06:59 06:59 Intake Total 4469.8 3582 Output Total 1104 1530 Balance 3365.8 2052 Result Diagrams: 08/19/17 03:30 08/19/17 03:30 Additional Labs: Microbiology 08/17/17 15:40 Urine bah catheter Urine Culture - Final NO GROWTH AT 36 HOURS 08/17/17 09:16 Venous blood - Right Hand Blood Culture - Preliminary Specimen has been received and culture in progress. No Growth to date. 08/17/17 09:10 Venous blood - Left Hand Blood Culture - Preliminary Specimen has been received and culture in progress. No Growth to date. Microbiology 08/17/17 15:40 Urine bah catheter Urine Culture - Final NO GROWTH AT 36 HOURS 08/17/17 09:16 Venous blood - Right Hand Blood Culture - Preliminary Specimen has been received and culture in progress. No Growth to date. 08/17/17 09:10 Venous blood - Left Hand Blood Culture - Preliminary Specimen has been received and culture in progress. No Growth to date. Phys Exam - Physical Examination Constitutional: NAD HEENT: PERRLA, moist MMs, sclera anicteric, oral pharynx no lesions ETT Neck: no JVD Respiratory: no wheezing, no rales, no rhonchi, clear to auscultation bilateral Cardiovascular: RRR, no significant murmur Gastrointestinal: soft, non-tender, no distention, positive bowel sounds Musculoskeletal: no edema, pulses present withdraws to pain Dx/Plan (1) Acute CVA (cerebrovascular accident) Code(s): I63.9 - CEREBRAL INFARCTION, UNSPECIFIED Status: Acute Comment: New R MCA stroke with hemorrhage in corpus (2) Status epilepticus Code(s): G40.901 - EPILEPSY, UNSP, NOT INTRACTABLE, WITH STATUS EPILEPTICUS Status: Acute Comment: Resolved. EEG Negative.On Dilantin and keppra (3) UTI (urinary tract infection) Status: Acute Comment: Cx pending (4) Fever Code(s): R50.9 - FEVER, UNSPECIFIED Status: Acute Comment: Likly cerebral.Rule out sepsis (5) Aspiration pneumonia Code(s): J69.0 - PNEUMONITIS DUE TO INHALATION OF FOOD AND VOMIT Status: Acute Comment: on Zosyn (6) HIRO (acute kidney injury) Code(s): N17.9 - ACUTE KIDNEY FAILURE, UNSPECIFIED Status: Resolved (7) h/o CVA with residual effects Status: Chronic (8) CAD (coronary artery disease) Code(s): I25.10 - ATHSCL HEART DISEASE OF [place] CORONARY ARTERY W/O ANG PCTRS Status: Acute (9) Hyperlipidemia Code(s): E78.5 - HYPERLIPIDEMIA, UNSPECIFIED Status: Chronic Comment: Statin agent once PEG/Dobhoff or oral route available (10) Hypertension Code(s): I10 - ESSENTIAL (PRIMARY) HYPERTENSION Status: Chronic Qualifiers: - Plan bah catheter, respiratory therapy, incentive spirometry, DVT proph w/SCDs cont supportive care. -: family leaning towrds comfort care & withdrawl of care -: will defer to PCCM & Neurology -: cont rest as before. * . Review of Systems - Review of Systems Other: limited ROS due to intubated and sedated state. - Medications/Allergies Allergies/Adverse Reactions: Allergies Allergy/AdvReac Type Severity Reaction Status Date / Time No Known Allergies Allergy Verified 08/15/17 20:52 Medications: Current Medications Acetaminophen (Tylenol) 650 mg PO Q6H PRN PRN Reason: Fever > 101 Last Admin: 08/19/17 10:34 Dose: 650 mg Albuterol/Ipratropium (Duoneb) 3 ml NEB [id number] [facility] Last Admin: 08/19/17 07:44 Dose: 3 ml Aspirin (Aspirin) 325 mg PER TUBE DAILY [facility] Last Admin: 08/19/17 10:23 Dose: 325 mg Benzonatate (Tessalon) 100 mg PO Q4H PRN PRN Reason: Cough Bisacodyl (Dulcolax) 10 mg PO DAILYPRN PRN PRN Reason: Constipation Clonidine (Catapres) 0.1 mg PO Q4H PRN PRN Reason: Systolic BP > 150 Famotidine (Pepcid) 20 mg PER TUBE DAILY [facility] Last Admin: 08/19/17 10:23 Dose: 20 mg Guaifenesin (Robitussin Sf) 200 mg PO Q4H PRN PRN Reason: Cough Hydralazine HCl (Apresoline) 10 mg SLOW IVP Q4H PRN PRN Reason: Systolic BP > 160 Sodium Chloride (Normal Saline 0.9%) 1,000 mls @ 50 mls/hr IV .Q20H [facility] Last Admin: 08/19/17 11:40 Dose: 1,000 mls Potassium Chloride 40 meq/ (Sodium Chloride) 270 mls @ 135 mls/hr IVPB ASDIR PRN PRN Reason: FOR SERUM K+ 2.5 - 3.5 Potassium Chloride 40 meq/ (Device) 100 mls @ 50 mls/hr IVPB ASDIR PRN PRN Reason: FOR SERUM K+ 2.5 - 3.5 Magnesium Sulfate 1 gm/ Sodium (Chloride) 102 mls @ 102 mls/hr IV PRN PRN PRN Reason: MAG LEVEL 1.4 - 2.0 Magnesium Sulfate 2 gm/ Device 100 mls @ 100 mls/hr IVPB ASDIR PRN PRN Reason: MAGNESIUM < 1.4 Potassium Phosphate 9 mmol/ (Sodium Chloride) 103 mls @ 25.75 mls/hr IVPB ASDIR PRN PRN Reason: Phosphate 1.0-1.8 Potassium Phosphate 12 mmol/ (Sodium Chloride) 254 mls @ 63.5 mls/hr IV ASDIR PRN PRN Reason: Serum phosphate 0.5-0.9 Potassium Phosphate 15 mmol/ (Sodium Chloride) 255 mls @ 63.75 mls/hr IV ASDIR PRN PRN Reason: Serum Phos < 0.5 Fentanyl Citrate 2,000 mcg/ (Sodium Chloride) 100 mls @ 0 mls/hr IV INF HAWA PRN Reason: As Directed Fentanyl Citrate (Fentanyl Bolus) 250 mls @ 0 mls/hr IVPB PRN PRN; As Directed PRN Reason: Breakthrough pain Piperacillin Sod/Tazobactam (Sod 3.375 gm/ Sodium Chloride) 100 mls @ 200 mls/ hr IVPB 0200,0800,1400,2000 [facility] Last Admin: 08/19/17 10:28 Dose: 100 mls Lactulose (Lactulose) 10 gm PO DAILYPRN PRN PRN Reason: Constipation Levetiracetam (Keppra Oral Solution) 1,000 mg PO BID [facility] Last Admin: 08/19/17 10:24 Dose: 1,000 mg Loratadine (Claritin) 10 mg PO DAILYPRN PRN PRN Reason: Sinus Symptoms Lorazepam (Ativan) 2 mg SLOW IVP Q2H PRN PRN Reason: Anxiety to achieve Bey 2-3 Stop: 09/14/17 19:05 Last Admin: 08/16/17 21:01 Dose: 2 mg Lorazepam (Ativan) 2 mg SLOW IVP Q4H PRN PRN Reason: Seizures Last Admin: 08/17/17 18:30 Dose: 2 mg Magnesium Oxide (Magnesium Oxide) 400 mg PO BIDPRN PRN PRN Reason: FOR SERUM MAG 1.4 - 2.0 Magnesium Oxide (Magnesium Oxide) 800 mg PO PRN PRN PRN Reason: FOR SERUM MAG < 1.4 Metoprolol Tartrate (Lopressor) 12.5 mg PER TUBE DAILY [facility] Last Admin: 08/19/17 10:23 Dose: 12.5 mg Miscellaneous Medication (Phos-Nak) 1 pkt PO TIDPRN PRN PRN Reason: FOR PHOS LEVEL 1.0 - 1.8 Miscellaneous Medication (Phos-Nak) 2 pkt PO TIDPRN PRN PRN Reason: FOR PHOS LEVEL 0.5 - 1.0 Morphine Sulfate (Morphine) 2 mg SLOW IVP Q2H PRN PRN Reason: .BREAKTHROUGH PAIN Last Admin: 08/18/17 18:24 Dose: 2 mg Ccu Electrolyte (Replacement Protocol) 0 each FS PRN PRN PRN Reason: FOR ELECTROLYTE REPLACEMENT Ondansetron HCl (Zofran) 4 mg IVP Q6H PRN PRN Reason: Nausea/Vomiting Phenytoin Sodium (Dilantin) 100 mg SLOW IVP TID [facility] Last Admin: 08/18/17 21:21 Dose: 100 mg Potassium Chloride (K-Dur) 40 meq PO ASDIR PRN PRN Reason: FOR SERUM K+ 2.5 - 3.5 Potassium Chloride (Klor-Con) 40 meq PER TUBE ASDIR PRN PRN Reason: FOR SERUM K+ 2.5-3.5 Last Admin: 08/18/17 05:37 Dose: 40 meq Propofol (Diprivan) 1,000 mg IV INF PRN; Protocol PRN Reason: TO ACHIEVE BEY SCORE 2-3 Stop: 09/14/17 19:05 Last Admin: 08/18/17 22:22 Dose: 1,000 mg Senna (Senokot) 2 tab PO HSPRN PRN PRN Reason: Constipation Sodium Chloride (Flush - Normal Saline) 10 ml IVF Q12HR [facility] Last Admin: 08/18/17 21:26 Dose: 10 ml Sodium Chloride (Flush - Normal Saline) 10 ml IVF PRN PRN PRN Reason: Saline Flush Last Admin: 08/18/17 21:26 Dose: 10 ml
--- NOTE | 2017-08-19 13:20 | PRG ---
DATE OF SERVICE: 08/19/2017 SUBJECTIVE: Mr. India Hennessy remains intubated on the vent and sedated on Diprivan. Apparently, they had tried to cut back his Diprivan, he was doing some nonspecific jerky movements, it is unclear whether he has been seizing, although, he is in several different anti-seizure medication. OBJECTIVE: HEENT: Pupils are equal. VITAL SIGNS: Blood pressure 120/80, pulse 80, respiration rate 18, sats are 100%. CHEST: Reveals extensive rhonchi. CARDIAC: Normal S1, S2, no gallops. ABDOMEN: Soft. NEUROLOGIC: He is sedated. EXTREMITIES: No edema. LABORATORY DATA AND RADIOGRAPHIC FINDINGS: X-ray shows right upper lung infiltrates. White count 80 00, hemoglobin and hematocrit is 10 and 28, platelet count 141. Creatinine is normal. Electrolytes are normal. Prior x-ray as noted. IMPRESSION: 1. Status epilepticus on multiple anti-seizure medications, Keppra, Dilantin. 2. Retained secretions, probably aspiration. 3. Hypertension. PLAN: If he is not weanable, we will try and decrease sedation to see whether he is any more respons sophia or seizing. Clearly not weanable, I will continue nebs, empiric antibiotics, supportive care. We will follow. One-half hour critical care time.
--- NOTE | 2017-08-19 13:53 | PRG ---
DATE OF SERVICE: 08/19/2017 Mr. Hennessy is a 81-year-old gentleman that presented with status epilepticus. He has a history of annamarie or infarct which involves the entirety of the left middle cerebral artery territory. He has the expe cted disability as a result. He had a repeat MRI scan performed, the results of which I reviewed yes terday which revealed the presence of a new large right middle cerebral artery infarct. There was a small degree of hemorrhagic transformation on the right side. I reviewed his history and his images. There is no role for surgical intervention with Mr. Hennessy. H denise has a new large infarct on the right in addition to the preexisting large infarct on the left. I d o not believe he would even benefit from a hemicraniectomy should he develop increased cerebral edema given his preexisting disability.
[2017-08-19] MEDS ORDERED: Lorazepam 2 MG/ML VIAL SLOW IVP PRN (17:02)
[2017-08-19] MEDS ORDERED: Morphine 4 MG/ML VIAL SLOW IVP PRN (17:05)
[2017-08-19] MEDS: Lorazepam 2 MG/ML VIAL SLOW IVP PRN ×2 (18:58→23:01)
[2017-08-19 20:42] VITALS: BP 148/66
[2017-08-19] MEDS: Morphine 4 MG/ML VIAL SLOW IVP PRN ×2 (21:11→22:28)
[2017-08-20] MEDS: Morphine 4 MG/ML VIAL SLOW IVP PRN ×3 (00:55→15:56)
[2017-08-20] MEDS: Lorazepam 2 MG/ML VIAL SLOW IVP PRN (04:57)
[2017-08-20 07:35] VITALS: TEMP 97.2
--- NOTE | 2017-08-20 08:47 | PRG ---
DATE OF SERVICE: 08/20/2017 The patient was terminally extubated last night and has now been moved to the oncology floor where he appears to be comfortable. PHYSICAL EXAMINATION: VITAL SIGNS: Temperature 97.2, pulse 82, respirations 20, O2 sat 100% on 2 liters. HEENT: Unremarkable. NECK: No JVD. CHEST: Clear without rhonchi. CARDIAC: S1 and S2 regular. ABDOMEN: Soft. EXTREMITIES: No edema. ASSESSMENT: Cerebrovascular accident -- new infarct on the right side in addition to the preexisting infarct on the left. PLAN: It looks like the patient has been transitioned to palliative care. No further pulmonary martha mmendations. We will sign off the case. Please recall if further assistance needed.
--- NOTE | 2017-08-20 12:54 | PDOC.PN ---
- Subjective Encounter Start Date: 08/20/17 Encounter Start Time: 11:30 Patient seen and examnied, famiily at bedside, no new issues, all questions answered. - Objective Vital Signs & Weight: Vital Signs (12 hours) Temp Pulse Resp Pulse Ox 08/20/17 07:24 97.2 F L 73 20 100 08/20/17 05:29 100 Weight Admit Weight 168 lb 6.928 oz Weight 168 lb 6.931 oz Most Recent Monitor Data Heart Rate from ECG 87 NIBP 101/41 NIBP BP-Mean 76 Respiration from ECG 23 SpO2 98 I&O: 08/19/17 08/20/17 08/21/17 06:59 06:59 06:59 Intake Total 3582 1338 Output Total 1530 785 Balance 2051 553 Result Diagrams: 08/19/17 03:30 08/19/17 03:30 Phys Exam - Physical Examination Constitutional: NAD HEENT: PERRLA, moist MMs Neck: no nodes, no JVD coarse breath sounds Cardiovascular: RRR 2/6 ALON Gastrointestinal: soft, non-tender, no distention Musculoskeletal: no edema, pulses present Dx/Plan (1) Aspiration pneumonia Code(s): J69.0 - PNEUMONITIS DUE TO INHALATION OF FOOD AND VOMIT Status: Acute Comment: on Zosyn (2) CAD (coronary artery disease) Code(s): I25.10 - ATHSCL HEART DISEASE OF [place] CORONARY ARTERY W/O ANG PCTRS Status: Acute (3) HIRO (acute kidney injury) Code(s): N17.9 - ACUTE KIDNEY FAILURE, UNSPECIFIED Status: Resolved (4) Acute CVA (cerebrovascular accident) Code(s): I63.9 - CEREBRAL INFARCTION, UNSPECIFIED Status: Acute Comment: New R MCA stroke with hemorrhage in corpus (5) Physical debility Code(s): R53.81 - OTHER MALAISE Status: Acute - Plan * Hospice care consult for today * DC plans to hospice when arranged, will obtain evaluation today * continue current plan of care, DNR/DNI * case and plan d/w patient's family () at length, they understand and agree with this plan * very poor prognosis
--- NOTE | 2017-08-20 15:42 | EEG ---
Referring Physician: DR. STAR PATTERSON EEG # [id number] NAME OF PATIENT: [place] Hennessy : 1935 DATE EEG DONE: 08/16/2017. INDICATION: Status epilepticus. REFERRING PHYSICIAN: Dr. Star Patterson EEG REPORT: This is a 22-channel digital EEG recording utilizing 10-20 international electrode placement system on a patient who presents with status epilepticus. The patient is on ventilator during this recording, unsure about sedation. During this recording, there is diffuse slowing and suppression noted throughout the recording, it is not reactive in nature. The patient has electrode artifact during this recording noted in different channels at different times. The patient clinically has a drawing up of his feet and both legs and feet, shaking. There is no clear epileptiform activity or electrographic seizure activity noted during this movement on the EEG. The patient has intermittent transient sharp activity noted OZ more than O1, unsure about the clinical significance of this. PHOTIC STIMULATION: Did not show any photic drive. No reaction to the photic stimulation, no background change. HYPERVENTILATION: Could not be performed. EK per minute. IMPRESSION: This EEG is considered abnormal. There is diffuse slowing and suppression noted during this EEG, this would suggest nonspecific diffuse cerebral dysfunction. However, patient does not appear to be in status epilepticus. No electrographic seizure activity noted during the recording. No epileptiform activity or seizure activity noted with the patient's clinical jerking and shaking movement of his legs and feet. Clinical correlation recommended. Booster Station Operator:YOLIE Glue Mixer: [email or web address]
--- NOTE | 2017-08-20 15:48 | PDOC.EVN ---
Event Note - Event Note Event Note: DC SUMMARY #[id number]
--- NOTE | 2017-08-20 16:11 | DIS ---
DATE OF ADMISSION: 08/15/2017 DATE OF DISCHARGE: 08/20/2017 ADMITTING DIAGNOSES: Seizure, history of coronary artery disease, hypertension, hyperlipidemia, hist ory of cerebrovascular accident. DISCHARGE DIAGNOSES: End-stage cerebrovascular disease, history of seizures, history of coronary art sylvia disease, history of hypertension, history of dyslipidemia. HOSPITAL COURSE: The patient is a 81-year-old male admitted to the hospital with status post seizure s. The patient was admitted and Internal Medicine seen him and also followed very closely by Neurosu rgsylvia and Neurology. The patient was found to have a severe significant CVA on evaluation during his hospital stay. The patient's family was kept up to date on a daily updates as well. The patient on MRI had findings concerning for large acute hemorrhagic infarctions as well as on the right side. T he patient at point time in discharge was deemed to be significantly poor prognosis after close discu ssion with Internal Medicine, Critical Care as well as Neurosurgery. The decision was made by family to have the patient transfer over for hospice care as no meaningful recovery was possible with aggre ssive intervention. The patient's was present for decision making and stated that she agreed wi th hospice care and would prefer to go to hospice care at the point in time of discharge. DISPOSITION: Inpatient hospice. FOLLOWUP: Follow up with hospice physician. ACTIVITY: As tolerated with assistance. DIET: As tolerated with assistance if needed. MEDICATIONS: Comfort care meds, hospice team to take over for medications. CONDITION: Stable. PROGNOSIS: Very poor. Case and plan discussed with the patient's at length. She understands and agrees with this plan .
== END 2017-08-20 17:00 | disposition hospice, inpatient (51) | DRG 208 ==
LOC: ERS 14:38 → CCU 18:55 → ONC 08-19 20:13
PROVIDERS: ADMIT Internal Medicine; ATTEND Internal Medicine
PROC: 0BH17EZ Insertion of Endotracheal Airway into Trachea, Via Natural or Artificial Opening (ICD-10-PCS; principal; 2017-08-15)
PROC: 5A1945Z Respiratory Ventilation, 24-96 Consecutive Hours (ICD-10-PCS; 2017-08-15)
DX: J96.00 Acute respiratory failure, unspecified whether with hypoxia or hypercapnia (principal); I63.511 Cerebral infarction due to unspecified occlusion or stenosis of right middle cerebral artery; I61.9 Nontraumatic intracerebral hemorrhage, unspecified; J69.0 Pneumonitis due to inhalation of food and vomit; I69.351 Hemiplegia and hemiparesis following cerebral infarction affecting right dominant side; N17.9 Acute kidney failure, unspecified; N39.0 Urinary tract infection, site not specified; G40.901 Epilepsy, unspecified, not intractable, with status epilepticus; Z51.5 Encounter for palliative care; Z66 Do not resuscitate; I25.10 Atherosclerotic heart disease of native coronary artery without angina pectoris; I10 Essential (primary) hypertension; E78.5 Hyperlipidemia, unspecified; I69.320 Aphasia following cerebral infarction; B95.2 Enterococcus as the cause of diseases classified elsewhere; I25.2 Old myocardial infarction; Z87.891 Personal history of nicotine dependence; Z79.899 Other long term (current) drug therapy; Z95.1 Presence of aortocoronary bypass graft
CPT/HCPCS: 31500; 36415; 51702; 70450; 70551; 71045; 71260; 80048; 80053; 80185; 80306; 81003; 81015; 82553; 82805; 83880; 84484; 85025; 87040; 87086; 93005; 94002; 94003; 94640; 95816; 95819; 96365; 96366; 96375; 96376; A4216; J1165; J1650; J1953; J2060; J2270; J2543; J2704; J7050; J7620; Q2009